=== PATIENT | female | born 1965 | race Caucasian/White ===

== ENCOUNTER 2020-03-18 16:22 | Outpatient (CLI) | payer OTHER, SELFPAY ==
--- NOTE | ~2020-03-18 | MM_ITS ---
EXAMINATION: MM screening suzie BI w renny HISTORY: Screening mammogram TECHNIQUE: Craniocaudal and mediolateral oblique 3-D tomosynthesis images were obtained and synthetic 2-D images were generated. CAD analysis was submitted and interpreted. COMPARISON: 07/19/2016 bilateral digital screening mammogram BREAST PARENCHYMAL COMPOSITION: The breasts are almost entirely fatty. FINDINGS: There is no evidence of suspicious mass, calcification, or architectural distortion to sugg est malignancy in either breast. There has been no suspicious interval change. IMPRESSION: 1. No mammographic evidence of malignancy. 2. Recommend routine screening mammography in one year. BI-RADS Category 1: Negative Reviewed, dictated and finalized at location A.
== END 2020-03-18 16:23 | disposition home or self-care (01) ==
LOC: ANHIMG 16:29
PROVIDERS: PCP Nurse Practitioner Family; Visit Provider Nurse Practitioner Family
DX: Z12.31 Encounter for screening mammogram for malignant neoplasm of breast (principal)
CPT/HCPCS: 77063; 77067

== ENCOUNTER 2021-03-31 16:43 | Outpatient (CLI) | payer OTHER, SELFPAY ==
--- NOTE | ~2021-03-31 | MM_ITS ---
EXAMINATION: MM screening suzie BI w renny HISTORY: Screening mammogram TECHNIQUE: Craniocaudal and mediolateral oblique 3-D tomosynthesis images were obtained and synthetic 2-D images were generated. CAD analysis was submitted and interpreted. COMPARISON: 03/18/2020 bilateral digital screening mammogram 08/19/2016 complete left breast ultrasound 07/19/2016, 04/29/2015 bilateral digital screening mammogram BREAST PARENCHYMAL COMPOSITION: The breasts are almost entirely fatty. FINDINGS: There is no evidence of suspicious mass, calcification, or architectural distortion to sugg est malignancy in either breast. There has been no suspicious interval change. IMPRESSION: 1. No mammographic evidence of malignancy. 2. Recommend routine screening mammography in one year. BI-RADS Category 1: Negative Reviewed, dictated and finalized at location A.
== END 2021-03-31 16:44 | disposition home or self-care (01) ==
PROVIDERS: PCP Nurse Practitioner Family; Visit Provider Nurse Practitioner Family
DX: Z12.31 Encounter for screening mammogram for malignant neoplasm of breast (principal)
CPT/HCPCS: 77063; 77067

== ENCOUNTER 2021-04-15 19:51 | Emergency (ER) | payer OTHER, SELFPAY ==
[2021-04-15 20:03] VITALS: BP 128/79; PULSE 102; RESP 16; TEMP 37.3; O2SAT 98
--- NOTE | 2021-04-15 20:03 | ED.URI ---
HPI - URI/Sore Throat General Chief Complaint: Upper Respiratory Infection Stated Complaint: cough/headache Time Seen by Provider: 04/15/21 20:03 Source: patient and RN notes reviewed Mode of arrival: ambulatory Limitations: no limitations History of Present Illness HPI Narrative: 55-year-old female presents with concern for Covid exposure, 4-day history of sinus congestion, drainage, headache, body aches, cough. Reports she has been taking [id number] medication without relief. She denies fever. Reports loss of taste and smell. MD elicited complaint: cough Related Data Home Medications Medication Instructions Recorded Confirmed Flonase 04/15/21 Xyzal 04/15/21 cyanocobalamin (vitamin B-12) 04/15/21 duloxetine mg PO 04/15/21 ergocalciferol (vitamin D2) 04/15/21 solifenacin mg PO 04/15/21 telmisartan mg 04/15/21 Allergies Allergy/AdvReac Type Severity Reaction Status Date / Time cephalexin Allergy Unknown Verified 02/12/19 10:54 Cephalosporins Allergy Unknown Verified 02/12/19 10:54 codeine Allergy Unknown Verified 02/12/19 10:54 hydrocodone Allergy Unknown Verified 02/12/19 10:54 morphine Allergy Unknown Verified 02/12/19 10:54 Penicillins Allergy Unknown Verified 02/12/19 10:54 Sulfa (Sulfonamide Allergy Unknown Verified 02/12/19 10:54 Antibiotics) sulfamethoxazole Allergy Unknown Verified 02/12/19 10:54 Review of Systems Review of Systems: CONSTITUTIONAL: Denies malaise, chills, sweats, or fever. EYES: Denies visual changes, redness, or discharge. ENT: Reports rhinorrhea, congestion, ear pain, sore throat. CARDIOVASCULAR: Denies chest pain, palpitations, or edema. RESPIRATORY: Reports cough. Denies dyspnea. GASTROINTESTINAL: Denies abdominal pain, nausea, vomiting, diarrhea SKIN: Denies rash or itching. MUSCULOSKELETAL: Reports myalgia. NEUROLOGIC: Reports headache. All systems reviewed & are unremarkable except as noted in HPI and below PMFSH Family History Family History (Updated 09/27/17 @ 12:18 by DOCTOR UNKNOWN) Other Family history of coronary artery disease Social History Social History Smoking status: Never smoker Alcohol intake: never Comments At time of signature, agree with nursing past medical, surgical, social and family history. There is no relevant family history pertinent to the presenting complaint Exam Narrative: GENERAL: Well-appearing, well-nourished, and in no acute distress. HEAD: Normocephalic EYES: PERRLA, conjunctivae clear ENT: Nares clear, turbinates erythematous, clear discharge. Mucous membranes moist. TM pearly henderson with sharp light reflex bilaterally; no tragal tenderness. Oropharynx not erythematous without lesions. Tonsils not enlarged and without exudate, no drooling, no hoarseness, no trismus, uvula midline. NECK: Supple. No lymphadenopathy CHEST: Clear to auscultation, breath sounds equal. No wheezing, rhonchi, rales, or stridor. No respiratory distress, speaks in full sentences. HEART: Regular rate and rhythm. No murmur heard. SKIN: Warm, dry, no rash. NEURO: Alert and oriented x3. PSYCH: Normal mood and affect Course Course Emergency Course: Patient is aware of diagnosis, understands and agrees to treatment plan. Anticipatory guidance given. Patient agrees to follow-up as directed and is aware of reasons to seek care at the emergency department. Portions of this record may have been created with voice recognition software Vital Signs Vital signs: Reviewed. MDM - URI/Sore Throat MDM Narrative Medical decision making narrative: Differential diagnosis considered: Gabriel virus, strep pharyngitis, allergic rhinitis, upper respiratory tract infection, sinusitis, rhinosinusitis, nasopharyngitis. viral pharyngitis, otitis media, otitis externa, pneumonia, bronchitis, viral cough syndrome, viral syndrome, and influenza. Exam findings show no acute concerns or changes; patient is non-toxic appearing and is in no distress. Patient
== END 2021-04-15 20:30 | disposition home or self-care (01) ==
PROVIDERS: Emergency Provider Nurse Practitioner; PCP Nurse Practitioner Family
DX: U07.1 COVID-19 (principal); I10 Essential (primary) hypertension
CPT/HCPCS: 87426; 99213; C9803; G0463

== ENCOUNTER 2022-02-02 14:33 | Emergency (ER) | payer OTHER, SELFPAY ==
--- NOTE | ~2022-02-02 | CT_ITS ---
EXAMINATION: CT abdomen pelvis wo con DATE: 02/02/2022 15:25 INDICATION: Flank pain, back pain and increased urinary frequency TECHNIQUE: Computed tomography (CT) of the abdomen and pelvis was performed without intravenous contr ast. Automated exposure control and iterative reconstruction technique were employed. The dose-length product was 868.76 mGy-cm. COMPARISON: 06/08/2013 FINDINGS: Lung bases are clear. Heart size is normal. No pericardial or pleural effusion. 3.2 cm cyst in the le ft hepatic lobe. Additional 5 mm low-attenuation likely cyst at the junction of the left and right he patic lobes. Cholecystectomy clips the gallbladder fossa. Pancreas, spleen, bilateral adrenal glands and kidneys are normal. No urolithiasis. Small fat-containing umbilical and supraumbilical ventral he rnias. There are few sigmoid diverticula without adjacent inflammatory change to suggest diverticulit is. Small bowel is normal with no obstruction. The appendix is not visualized. No pericecal inflammat ory change to suggest acute appendicitis. Bladder is normal. The uterus is not identified and has lik cris been surgically resected. No free intraperitoneal gas or fluid. No pathologically enlarged abdomi nal or pelvic lymphadenopathy. Scattered mild degenerative skeletal changes. IMPRESSION: 1. No urolithiasis or acute intra-abdominal/pelvic process. 2. Small fat-containing umbilical and supraumbilical ventral hernias. Reviewed, dictated and finalized at location B.
[2022-02-02 14:35] VITALS: BP 140/80; PULSE 83; RESP 19; TEMP 36.6; O2SAT 96
[2022-02-02 15:05] LABS: Add Urine Microscopic? NO; Appearance Urine Clear (Clear); Bilirubin Urine Negative (Negative); Blood Urine Negative (Negative); Color Urine Yellow (Yellow); Glucose Urine UA Negative (Negative); Ketones Urine Trace mg/dL (Negative); Leukocyte Esterase Ur Negative LEU/UL (Negative); Nitrate Urine Negative (Negative); Protein Urine Negative (Negative); Specific Grav Ur >= 1.030 (1.001-1.035); Urobilinogen Urine 0.2 mg/dL (<2.0)
--- NOTE | 2022-02-02 15:06 | PC.NURSE ---
patient to ER per personal vehicle. pt states that she has been diagnosed with UTI and has been put on two rounds of ANTBX. culture was done and states that the bacteria is resistant to multiple antibiotics. She also has multiple allergies to medications. She was sent in by PCP for IV Antibiotics.
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
== END 2022-02-02 16:44 | disposition home or self-care (01) ==
PROVIDERS: Physician Assistant; Emergency Provider Emergency Medicine; PCP Nurse Practitioner Family
DX: N39.46 Mixed incontinence (principal)
CPT/HCPCS: 74176; 81003; 99284

== ENCOUNTER 2022-09-17 11:48 | Emergency (ER) | payer OTHER, SELFPAY ==
[2022-09-17 11:58] VITALS: BP 129/80; PULSE 84; RESP 16; TEMP 36.8; O2SAT 99
--- NOTE | 2022-09-17 12:32 | ED.URI ---
HPI - URI/Sore Throat General Chief Complaint: Upper Respiratory Infection Stated Complaint: Sore Throat Time Seen by Provider: 09/17/22 12:32 Source: patient Mode of arrival: ambulatory Limitations: no limitations History of Present Illness HPI Narrative: 56-year-old female presents with complaint of sore throat, sinus pressure, ear pressure for 2 days. Afebrile. Denies body aches, fatigue. No nausea vomiting diarrhea. No chest pain shortness of breath or cough. Recent strep exposure. All systems reviewed and negative except as noted above. Related Data Home Medications Medication Instructions Recorded Confirmed gabapentin 100 mg capsule 100 mg PO HS 02/02/22 09/17/22 hydroxychloroquine 200 mg tablet 200 mg PO BID 02/02/22 09/17/22 telmisartan 40 mg tablet 40 mg PO DAILY 02/02/22 09/17/22 Allergies Allergy/AdvReac Type Severity Reaction Status Date / Time cephalexin Allergy Unknown Unknown Verified 09/17/22 12:05 Cephalosporins Allergy Unknown Unknown Verified 09/17/22 12:05 codeine Allergy Unknown Unknown Verified 09/17/22 12:05 hydrocodone Allergy Unknown Unknown Verified 09/17/22 12:05 morphine Allergy Unknown Unknown Verified 09/17/22 12:05 Penicillins Allergy Unknown Unknown Verified 09/17/22 12:05 Sulfa (Sulfonamide Allergy Unknown Hives Verified 09/17/22 12:05 Antibiotics) sulfamethoxazole Allergy Unknown Unknown Verified 09/17/22 12:05 tramadol Allergy Agitated Verified 09/17/22 12:05 Review of Systems Review of Systems: CONSTITUTIONAL: Denies fever, chills, or sweats. EYES: Denies visual changes, redness, or discharge. ENT: Denies rhinorrhea . Reports sinus congestion, sore throat, ear pressure CARDIOVASCULAR: Denies chest pain, palpitations, or edema. RESPIRATORY: Denies cough or dyspnea. GASTROINTESTINAL: Denies abdominal pain, nausea, vomiting, or diarrhea. GENITOURINARY: Denies dysuria or hematuria. SKIN: Denies rash or itching. MUSCULOSKELETAL: Denies back pain, joint pain, or myalgia. NEUROLOGIC: Denies headache, numbness, or weakness. PSYCHIATRIC: Denies anxiety or depression. All other systems reviewed are negative, except as documented in HPI. [facility] Surgical History Surgical History H/O exploratory laparotomy Family History Family History Other Family history of coronary artery disease Social History Social History (System 03/10/22 @ 12:02 by Jacki Flynn) Smoking status: Never smoker Alcohol intake: never Comments At time of signature, agree with nursing past medical, surgical, social and family history. There is no relevant family history pertinent to the presenting complaint. Exam Narrative: GENERAL: This is a well-nourished, well-developed patient, in no apparent distress. HEAD: normocephalic, atraumatic. EYES: PERRL. Sclera clear/white. Vision is grossly intact. EARS: External ears normal, auditory canals clear and without drainage, TMs normal without perforation. Hearing grossly intact. NOSE: External nose normal with mild erythema bilateral nares, mild congestion. THROAT: Mucous membranes moist, posterior pharynx clear. NECK: Neck supple, non-tender without lymphadenopathy, masses or thyromegaly. CARDIOVASCULAR: Regular rate and rhythm without murmurs, gallops, or rubs. RESPIRATORY: Clear to auscultation. Breath sounds equal bilaterally. No wheezes, rales, or rhonchi. SKIN: warm, Dry, intact with no suspicious lesions or rash, good texture and turgor. NEURO: awake, alert, and oriented to person, place and time. There were no obvious focal neurologic abnormalities. EXTREMITIES: No joint tenderness, effusion, or edema noted. Course Course Level of Care: Express Care Visit Vital Signs Vital signs: Vital Signs Temperature 36.8 C 09/17/22 11:58 Pulse Rate 84 09/17/22 11:58 Respiratory Rate 16 09/17/22 11:58 Blood Pressure 129/80
== END 2022-09-17 12:48 | disposition home or self-care (01) ==
PROVIDERS: Emergency Provider Nurse Practitioner Family; PCP Nurse Practitioner Family
DX: J01.90 Acute sinusitis, unspecified (principal); J02.9 Acute pharyngitis, unspecified; Z20.822 Contact with and (suspected) exposure to COVID-19
CPT/HCPCS: 87081; 87426; 87880; 99213; C9803; G0463

== ENCOUNTER 2024-02-17 12:44 | Outpatient (CLI) | payer OTHER, SELFPAY ==
--- NOTE | ~2024-02-17 | MM_ITS ---
EXAMINATION: MM screening suzie BI w renny HISTORY: Screening TECHNIQUE: Craniocaudal and mediolateral oblique 3-D tomosynthesis images were obtained and synthetic 2-D images were generated. CAD analysis was submitted and interpreted. COMPARISON: Comparison to multiple prior studies sequentially, with oldest reviewed study dated 04/29. BREAST PARENCHYMAL COMPOSITION: Not dense: There are scattered areas of fibroglandular density. FINDINGS: There is no evidence of suspicious mass, calcification, or architectural distortion to sugg est malignancy in either breast. There has been no suspicious interval change. IMPRESSION: 1. No mammographic evidence of malignancy. 2. Recommend routine screening mammography in one year. BI-RADS Category 1: Negative Reviewed, dictated and finalized at location B.
--- NOTE | ~2024-02-17 | DEXA_ITS ---
Bone Density Report Name: RICHARD BENITEZ Age: 58 Sex: Female Ethnicity: White Date of : 1965 Indication: postmenopausal; screening for osteoporosis; height loss; history of glucocorticoids; hysterectomy; Referring Provider: YOANESTEE Study: Bone densitometry was performed. Exam Date: February 17, 2024 Accession number: [id number] Bone Density: Region BMD T-score Z-score Classification AP Spine(L1-L4) 0.949 -0.9 0.5 Normal Femoral Neck (Left) 0.772 -0.7 0.6 Normal Total Hip (Left) 1.069 1.0 2.0 Normal Femoral Neck (Right) 0.728 -1.1 0.2 Osteopenia Total Hip (Right) 1.003 0.5 1.5 Normal Total Hip Mean 1.036 0.8 1.8 Normal World Health Organization criteria for BMD impression classify patients as: Normal (T-score at or above -1.0), Osteopenia (T-score between -1.0 and -2.5), or Osteoporosis (T-score at or below -2.5). 10-year Fracture Risk(1): Major Osteoporotic Fracture 11% Hip Fracture 0.8% Reported Risk Factors: [place] (), Neck BMD=0.728, BMI=33.9, glucocorticoids (1) FRAX(R) Version 3.08. Fracture probability calculated for an untreated patient. Fracture probability may be lower if the patient has received treatment. Clinical Information Provided by Patient: Has taken Glucocorticoids Has used the following medications: Vitamin D, Calcium Has the following medical conditions: Hysterectomy Patient maximum height was 67.0 Menopause Age: 33 No regular weight bearing exercise Drinks caffeinated beverages Onset of menses at age 10 Number of children 1 Impression: The patient has low bone mass, based on the Right Femoral Neck T-score. The patient has an estimated ten-year risk of hip fracture of 0.8% and an estimated ten-year risk of major fracture of 11%, based on the WHO FRAX algorithm. The patient has risk factors, including: history of glucocorticoid therapy. Discussion: BONE DENSITY IS LOW AT ONE OR MORE SKELETAL SITES. This patient's lowest T-score is low at one or more skeletal sites. It meets the World Health Organization's (WHO) criteria for ?low bone mass? (T-score between -1.0 and -2.5). The patient's 10-year risk of fracture as calculated by FRAX is less than the threshold where pharmacological therapy is recommended by the National Osteoporosis Foundation (NOF). However, all treatment decisions require clinical judgment and consideration of individual patient factors, including patient preferences, comorbidities, previous drug use, risk factors not captured in the FRAX model (e.g., frailty, falls, vitamin D deficiency, increased bone turnover, interval significant decline in bone density) and possible under or overestimation of fracture risk by FRAX. The patient should follow a healthful lifestyle (good nutrition with adequate calcium and vitamin D,
== END 2024-02-17 12:45 | disposition home or self-care (01) ==
LOC: ANHIMG 12:52
PROVIDERS: PCP Nurse Practitioner Family; Visit Provider Nurse Practitioner Family
DX: Z12.31 Encounter for screening mammogram for malignant neoplasm of breast (principal); E89.40 Asymptomatic postprocedural ovarian failure; Z90.710 Acquired absence of both cervix and uterus; M85.851 Other specified disorders of bone density and structure, right thigh
CPT/HCPCS: 77063; 77067; 77080

== ENCOUNTER 2024-04-30 19:38 | Emergency (ER) | payer OTHER, SELFPAY ==
--- NOTE | ~2024-04-30 | XR_ITS ---
EXAMINATION: XR wrist LT min 3V DATE: 04/30/2024 20:03 INDICATION: Left wrist pain. TECHNIQUE: 3 views of left wrist were obtained. COMPARISON: None. FINDINGS: Alignment is normal. No fracture. There is severe osteoarthritis of first carpometacarpal j oint with a loose body. IMPRESSION: 1. Severe osteoarthritis of first carpometacarpal joint with a loose body. Reviewed, dictated and finalized at location A.
[2024-04-30 19:50] VITALS: BP 149/86; PULSE 85; RESP 20; TEMP 37.4; O2SAT 97
--- NOTE | 2024-04-30 20:30 | ED.UPPEXIN ---
HPI - Extremity Injury (Upper) General Chief Complaint: Extremity Injury, Upper Stated Complaint: Left Wrist Pain Time Seen by Provider: 04/30/24 20:30 Source: patient, RN notes reviewed and old records reviewed Mode of arrival: ambulatory Limitations: no limitations History of Present Illness HPI narrative: 58-year-old female presents to the [facility] with complaints of left wrist pain after lifting an object yesterday. States that she took some ibuprofen 600 mg in been icing and elevating it. has a splint that she has been wearing. Decreased range of motion. Positive radial pulse. Capillary refill under 2 seconds. Sensation intact. Mild inflammation noted Related Data Home Medications Medication Instructions Recorded Confirmed gabapentin 100 mg capsule 100 mg PO HS 02/02/22 09/17/22 hydroxychloroquine 200 mg tablet 200 mg PO BID 02/02/22 09/17/22 telmisartan 40 mg tablet 40 mg PO DAILY 02/02/22 09/17/22 cyanocobalamin (vitamin B-12) mcg 04/30/24 1,000 mcg/mL injection solution ergocalciferol (vitamin D2) 1,250 04/30/24 mcg (50,000 unit) capsule fenofibrate nanocrystallized 145 mg PO 04/30/24 mg tablet imiquimod 5 % topical cream packet topical 04/30/24 syringe with needle 3 mL 25 gauge 04/30/24 04/30/24 x 1 (BD Luer-Rad Syringe) Allergies Allergy/AdvReac Type Severity Reaction Status Date / Time cephalexin Allergy Unknown Unknown Verified 04/30/24 19:51 Cephalosporins Allergy Unknown Unknown Verified 04/30/24 19:51 codeine Allergy Unknown Unknown Verified 04/30/24 19:51 hydrocodone Allergy Unknown Unknown Verified 04/30/24 19:51 morphine Allergy Unknown Unknown Verified 04/30/24 19:51 Penicillins Allergy Unknown Unknown Verified 04/30/24 19:51 Sulfa (Sulfonamide Allergy Unknown Hives Verified 04/30/24 19:51 Antibiotics) sulfamethoxazole Allergy Unknown Unknown Verified 04/30/24 19:51 tramadol Allergy Agitated Verified 04/30/24 19:51 Review of Systems Review of Systems: All systems reviewed & are unremarkable except as noted in HPI and below Constitutional: Constitutional: Reports no additional constitutional complaints Eyes: Eyes: Reports no additional eye complaints ENT: Reports system reviewed and no additional complaints, except as documented Cardiovascular: Cardiovascular: Reports no additional cardiovascular complaints, Denies chest pain and Denies dyspnea Respiratory: Respiratory: Reports no additional respiratory complaints, Denies chest congestion, Denies cough and Denies dyspnea Gastrointestinal: Gastrointestinal: Reports no additional gastrointestinal complaints, Denies abdominal pain, Denies nausea and Denies vomiting Musculoskeletal: Musculoskeletal: Reports as per HPI and Reports arthralgias Integumentary/Breasts: Skin/Breast: Reports system reviewed and no additional complaints, except as docu Neurologic: Reports system reviewed and no additional complaints, except as documented Psychiatric: Psychiatric: Reports no additional psychiatric complaints Allergic/Immunologic: Allergic/Immunologic: Reports no additional allergic/immunologic complaints PMFSH Past Medical History Medical History Fibromyalgia Hypertriglyceridemia Vitamin D deficiency Surgical History Surgical History H/O exploratory laparotomy Family History Family History Other Family history of coronary artery disease Social History Social History Smoking status: Never smoker Alcohol intake: never Comments At the time of my signature, I reviewed and agree with the nursing past medical, surgical, social, and family history. There is no relevant family history pertinent to the patient complaint. Exam Const: General: cooperative, healthy appearing, comfortable, no acut
== END 2024-04-30 20:40 | disposition home or self-care (01) ==
PROVIDERS: Emergency Provider Nurse Practitioner; PCP Nurse Practitioner Family
DX: S66.912A Strain of unspecified muscle, fascia and tendon at wrist and hand level, left hand, initial encounter (principal); X50.0XXA Overexertion from strenuous movement or load, initial encounter; M19.032 Primary osteoarthritis, left wrist; M79.7 Fibromyalgia; E78.1 Pure hyperglyceridemia
CPT/HCPCS: 73110; 99213; G0463

== ENCOUNTER 2024-10-25 10:53 | Inpatient (IN) | payer OTHER, SELFPAY ==
[2024-10-25] VITALS (20 sets, daily range): BP systolic 103–118; BP diastolic 60–70; PULSE 62–99; RESP 15–28; TEMP 36.7–37.6; O2SAT 88–97; BMI 32.8
--- NOTE | ~2024-10-25 | XR_ITS ---
XR chest 2V 10/25/2024 11:24 Indication: Shortness of breath Procedure: 2 view chest Comparison: 02/12/2019 Findings: Heart size normal. No focal air space disease, pulmonary edema, pleural effusion or suspect ed pneumothorax. No acute osseous abnormality. There are cholecystectomy clips. Mild thoracic spondyl osis. There is osteoarthritis of the shoulders. Impression: 1: No acute cardiopulmonary disease. Reviewed, dictated and finalized at location B. CASE MANAGER Impression: 1: No acute cardiopulmonary disease.
--- NOTE | 2024-10-25 11:00 | ECG_ITS ---
Test Date: 2024-10-25 11:36:11 Measurements Intervals [place] Rate: 96 P: 43 CT: 156 QRS: 91 QRSD: 100 T: 40 QT: 349 QTc: 442 Interpretive Statements SINUS RHYTHM RIGHT AXIS DEVIATION BORDERLINE R WAVE PROGRESSION, ANTERIOR LEADS MINIMAL Q WAVES- INFERIOR LEADS BORDERLINE T WAVE ABNORMALITY- ANTERIOR LEADS BORDERLINE ECG No previous ECG available for comparison Electronically Signed On 10-25-2024 11:47:18 COMPONENTS ENGINEER by Derek Brown D.O.
--- NOTE | 2024-10-25 11:12 | ED_ITS ---
HPI - SOB/Dyspnea General Chief Complaint: Shortness of Breath/Dyspnea <Pavithra Quesada PA-C - Last Filed: 10/25/24 12:42> Stated Complaint: low oxygen, flu a <Pavithra Quesada PA-C - Last Filed: 10/25/24 12:42> Time Seen by Provider: 10/25/24 11:02 <Pavithra Quesaad PA-C - Last Filed: 10/25/24 12:42> Source: patient <Pavithra Quesada PA-C - Last Filed: 10/25/24 12:42> Mode of arrival: wheelchair <DIANE Renee Last Filed: 10/25/24 12:42> Limitations: no limitations <Pavithra Quesada PA-C - Last Filed: 10/25/24 12:42> History of Present Illness HPI Narrative: This is a 59-year-old female that presents to the emergency department for cold symptoms. Present over the last 6 days. Reports fever, cough, congestion, shortness of breath. Reports she currently has influenza. Seen at her primary office and was hypoxic. Refused ambulance transport. <Pavithra Quesada PA-C - Last Filed: 10/25/24 12:42> Related Data Home Medications: Home Medications ?Medication ?Instructions ?Recorded ?Confirmed ?Last Taken ?Type gabapentin 100 mg capsule 100 mg PO HS 02/02/22 10/25/24 10/24/24 History hydroxychloroquine 200 mg tablet 200 mg PO BID 02/02/22 10/25/24 10/24/24 History telmisartan 40 mg tablet 40 mg PO DAILY 02/02/22 10/25/24 10/24/24 History cyanocobalamin (vitamin B-12) mcg 04/30/24 09/24/24 History 1,000 mcg/mL injection solution ergocalciferol (vitamin D2) 1,250 04/30/24 Unknown History mcg (50,000 unit) capsule fenofibrate nanocrystallized 145 mg PO 04/30/24 Unknown History mg tablet syringe with needle 3 mL 25 gauge 04/30/24 10/25/24 Unknown History x 1 (BD Luer-Rad Syringe) duloxetine 30 mg capsule,delayed 30 mg PO DAILY 10/25/24 10/25/24 10/24/24 History release <Pavithra Quesada PA-C - Last Filed: 10/25/24 12:42> Allergies/Adverse Reactions: Allergies Allergy/AdvReac Type Severity Reaction Status Date / Time cephalexin Allergy Unknown Unknown Verified 10/25/24 13:06 Cephalosporins Allergy Unknown Unknown Verified 10/25/24 13:06 codeine Allergy Unknown Unknown Verified 10/25/24 13:06 hydrocodone Allergy Unknown Unknown Verified 10/25/24 13:06 morphine Allergy Unknown Unknown Verified 10/25/24 13:06 Penicillins Allergy Unknown Unknown Verified 10/25/24 13:06 Sulfa (Sulfonamide Allergy Unknown Hives Verified 10/25/24 13:06 Antibiotics) sulfamethoxazole Allergy Unknown Unknown Verified 10/25/24 13:06 ketorolac (From Toradol) Allergy Vomiting Verified 10/25/24 13:06 tramadol Allergy Agitated Verified 10/25/24 13:06 <Pavithra Quesada PA-C - Last Filed: 10/25/24 12:42> Review of Systems 2 Review of Systems: CONSTITUTIONAL: Denies fever ENT: Reports rhinorrhea, congestion CARDIOVASCULAR: Denies chest pain, or edema. RESPIRATORY: Reports cough and dyspnea. <Pavithra Quesada PA-C - Last Filed: 10/25/24 12:42> All systems reviewed & are unremarkable except as noted in HPI and below < Pavithra Quesada PA-C - Last Filed: 10/25/24 12:42> [facility] Past Medical History Medical History: Medical History (Updated 10/25/24 @ 13:29 by Rhoda Chapa APRN) Hypertension Vitamin D deficiency Hypertriglyceridemia Fibromyalgia <Pavithra Quesada PA-C - Last Filed: 10/25/24 12:42> Surgical History Surgical History: Surgical History H/O exploratory laparotomy <Pavithra Quesada PA-C - Last Filed: 10/25/24 12:42> Family History Family History: Family History Other Family history of coronary artery disease <Pavithra Quesada PA-C - Last Filed: 10/25/24 12:42> Social History Social History: Social History Smoking status: Never smoker Alcohol intake: never Substance use: never Substance use type: does not use Do You Feel Safe in your Home?: Yes Lack of Transportation: No Lack of Food: Never True Current Housing: I Have Housing Concerned About Future Housing: No Difficulty Paying Gas/Electric Bills: No Difficulty Paying for Meds: No Currently Unemployed: No Education: Don't Know Difficulty w/ Childcare or Family Care: No Spiritual care concerns: No <Pavithra Quesada PA-C - Last Filed: 10/25/24 12:42> Exam 2 Narrative: GENERAL: Well-appearing, well-nourished, and in no acute distress. HEAD: Normocephalic, atraumatic. EYES: EOMI. ENT: Nares clear, no rhinorrhea or epistaxis. Mucous membranes moist. Oropharynx without tonsillar hypertrophy exudate or other lesions. Bilateral TMs pearly henderson non-bulging NECK: Supple. No adenopathy or masses. CHEST: No respiratory distress. Lung sounds diminished with diffuse wheezing. No rales or rhonchi HEART: Regular rate and rhythm. No murmur heard. Normal peripheral pulses. EXTREMITIES: Normal range of motion. No edema. SKIN: Warm, dry, no rash. NEURO: No focal deficits. Alert and oriented x3. PSYCH: Normal mood and affect <Pavithra Quesada PA-C - Last Filed: 10/25/24 12:42> Course Course Emergency Course: patient updated on her workup and recommendation for admission. She did have improvement after nebulizer treatment <Pavithra Quesada PA-C - Last Filed: 10/25/24 12:42> JOB CHECKER/PA Physician Supervision This visit was performed by both a physician and an APC. I performed all aspects of the MDM as documented. <Moo Garcia MD - Last Filed: 10/25/24 18:05> Consultations Consultation #1: Spoke with hospitalist about patient and workup who accepts admission < Pavithra Quesada PA-C - Last Filed: 10/25/24 12:42> Date: 10/25/24 <Pavithra Quesada PA-C - Last Filed: 10/25/24 12:42> Vital Signs Vital signs: Vital Signs Temperature 99.7 F H 10/25/24 10:54 Pulse Rate 99 10/25/24 10:54 Respiratory Rate 20 10/25/24 10:54 Blood Pressure 110/60 10/25/24 10:54 Pulse Oximetry 94 10/25/24 10:54 Oxygen Delivery Room Air 10/25/24 10:54 Temperature 98.2 F 10/25/24 15:00 Pulse Rate 82 10/25/24 15:00 Respiratory Rate 20 10/25/24 15:00 Blood Pressure 113/61 10/25/24 15:00 Pulse Oximetry 93 10/25/24 15:00 Oxygen Delivery Nasal Cannula 10/25/24 14:07 Oxygen Flow Rate 3 10/25/24 14:07 <Pavithra Quesada PA-C - Last Filed: 10/25/24 12:42> Vital Signs Temperature 99.7 F H 10/25/24 10:54 Pulse Rate 99 10/25/24 10:54 Respiratory Rate 20 10/25/24 10:54 Blood Pressure 110/60 10/25/24 10:54 Pulse Oximetry 94 10/25/24 10:54 Oxygen Delivery Room Air 10/25/24 10:54 Temperature 98.2 F 10/25/24 15:00 Pulse Rate 82 10/25/24 15:00 Respiratory Rate 20 10/25/24 15:00 Blood Pressure 113/61 10/25/24 15:00 Pulse Oximetry 93 10/25/24 15:00 Oxygen Delivery Nasal Cannula 10/25/24 14:07 Oxygen Flow Rate 3 10/25/24 14:07 <Moo Garcia MD - Last Filed: 10/25/24 18:05> MDM - SOB/Dyspnea MDM Narrative Medical decision making narrative: Patient presents to the emergency department with shortness of breath and wheezing. Patient currently with influenza a. She is afebrile and nontoxic appearing. Diffuse wheezing noted upon arrival. Given nebulizer treatment and steroid with improvement. She did have oxygen desaturation in the upper 80s. Is currently on 3 L nasal cannula. She does not usually wear oxygen. Chest x- ray without acute cardiopulmonary abnormality. patient updated on her workup and recommendation for admission. Spoke with hospitalist about patient and workup who accepts admission <Pavithra Quesada PA-C - Last Filed: 10/25/24 12:42> Differential Diagnosis Differential diagnosis: Likely community acquired pneumonia and other (influenza, bronchitis) < Pavithra Quesada PA-C - Last Filed: 10/25/24 12:42> Lab Data Attestation: I reviewed the patient's lab results. <Pavithra Quesada PA-C - Last Filed: 10/25/24 12:42> Result diagrams: 10/25/24 11:41 10/25/24 11:41 <Pavithra Quesada PA-C - Last Filed: 10/25/24 12:42> Labs: Lab Results 10/25/24 10/25/24 Range/Units 11:41 14:12 WBC 5.1 (4.5-10.0) K/mm3 RBC 3.77 L (4.2-5.4) M/mm3 Hgb 13.2 (12.0-15.0) g/dL Hct 37.7 (37.0-47.0) % MCV 100.0 (80-100) fl MCH 35.0 H (26-34) pg MCHC 35.0 (32-36) g/dl RDW 12.0 (11.5-14.5) % Plt Count 167 (150-375) k/mm3 MPV 9.6 (7.4-10.4) fl Immature Gran % (Auto) 0.4 (0-0.5) % Neut % (Auto) 64.3 (45.5-73.1) % Lymph % (Auto) 26.0 (18.3-44.2) % Hamlin % (Auto) 9.1 H (2.6-8.5) % Eos % (Auto) 0.0 (0-4.4) % Baso % (Auto) 0.2 (0.2-1.2) % Lymph # (Auto) 1.32 (0.9-3.2) K/mm3 Hamlin # (Auto) 0.5 (0.1-0.6) K/mm3 Eos # (Auto) 0.0 (0-0.3) K/mm3 Baso # (Auto) 0.0 (0.0-0.1) K/mm3 Abs Immat Gran (auto) 0.02 (0.00-0.031) K/mm3 Absolute Neuts (auto) 3.3 (1.3-6.7) K/mm3 Absolute Nucleated RBC 0.000 (0.0-0.012) K/mm3 Band Neutrophils % Not Reportable Nucleated RBC % 0.0 (0.0-0.2) % Atypical Lymphocytes Present Platelet Estimate Adequate (Adequate) Schistocytes None seen Sodium 134 L (137-145) mmol/L Potassium 3.6 (3.4-5.0) mmol/L Chloride 95 L (98-107) mmol/L Carbon Dioxide 28 (22-30) mmol/L Anion Gap 11 (4-12) mmol/L BUN 24 H (7-17) mg/dL Creatinine 0.82 (0.7-1.0) mg/dL Estim Creat Clear Calc 74 ml/min Estimated GFR > 60 (59 - ) Glucose 112 H (65-110) mg/dL Lactic Acid 0.7 (0.7-2.0) mmol/L Calcium 8.1 L (8.4-10.2) mg/dL Total Bilirubin 0.7 (0.2-1.3) mg/dL AST 47 H (14-36) U/L ALT 38 H (6-35) U/L Alkaline Phosphatase 49 (38-126) U/L Total Protein 7.0 (6.3-8.2) g/dL Albumin 4.0 (3.5-5.1) g/dL Influenza A (RT-PCR) Positive A (Negative) Influenza B (RT-PCR) Negative (Negative) RSV (RT-PCR) Negative (Negative) SARS-CoV-2 RNA (RT-PCR) Negative (Negative) <Pavithra Quesada PA-C - Last Filed: 10/25/24 12:42> Lab Results 10/25/24 10/25/24 Range/Units 11:41 14:12 WBC 5.1 (4.5-10.0) K/mm3 RBC 3.77 L (4.2-5.4) M/mm3 Hgb 13.2 (12.0-15.0) g/dL Hct 37.7 (37.0-47.0) % MCV 100.0 (80-100) fl MCH 35.0 H (26-34) pg MCHC 35.0 (32-36) g/dl RDW 12.0 (11.5-14.5) % Plt Count 167 (150-375) k/mm3 MPV 9.6 (7.4-10.4) fl Immature Gran % (Auto) 0.4 (0-0.5) % Neut % (Auto) 64.3 (45.5-73.1) % Lymph % (Auto) 26.0 (18.3-44.2) % Hamlin % (Auto) 9.1 H (2.6-8.5) % Eos % (Auto) 0.0 (0-4.4) % Baso % (Auto) 0.2 (0.2-1.2) % Lymph # (Auto) 1.32 (0.9-3.2) K/mm3 Hamlin # (Auto) 0.5 (0.1-0.6) K/mm3 Eos # (Auto) 0.0 (0-0.3) K/mm3 Baso # (Auto) 0.0 (0.0-0.1) K/mm3 Abs Immat Gran (auto) 0.02 (0.00-0.031) K/mm3 Absolute Neuts (auto) 3.3 (1.3-6.7) K/mm3 Absolute Nucleated RBC 0.000 (0.0-0.012) K/mm3 Band Neutrophils % Not Reportable Nucleated RBC % 0.0 (0.0-0.2) % Atypical Lymphocytes Present Platelet Estimate Adequate (Adequate) Schistocytes None seen Sodium 134 L (137-145) mmol/L Potassium 3.6 (3.4-5.0) mmol/L Chloride 95 L (98-107) mmol/L Carbon Dioxide 28 (22-30) mmol/L Anion Gap 11 (4-12) mmol/L BUN 24 H (7-17) mg/dL Creatinine 0.82 (0.7-1.0) mg/dL Estim Creat Clear Calc 74 ml/min Estimated GFR > 60 (59 - ) Glucose 112 H (65-110) mg/dL Lactic Acid 0.7 (0.7-2.0) mmol/L Calcium 8.1 L (8.4-10.2) mg/dL Total Bilirubin 0.7 (0.2-1.3) mg/dL AST 47 H (14-36) U/L ALT 38 H (6-35) U/L Alkaline Phosphatase 49 (38-126) U/L Total Protein 7.0 (6.3-8.2) g/dL Albumin 4.0 (3.5-5.1) g/dL Influenza A (RT-PCR) Positive A (Negative) Influenza B (RT-PCR) Negative (Negative) RSV (RT-PCR) Negative (Negative) SARS-CoV-2 RNA (RT-PCR) Negative (Negative) <Moo Garcia MD - Last Filed: 10/25/24 18:05> Imaging Data Radiologist's impression: ITS Impressions Chest X-Ray 10/25/24 11:24 Impression: 1: No acute cardiopulmonary disease. <Pavithra Quesada PA-C - Last Filed: 10/25/24 12:42> ECG Data EKG #1: ECG completion date: 10/25/24 <Pavithra Quesada PA-C - Last Filed: 10/25/24 12:42> EKG Interpretation: normal rate, sinus rhythm, no ST changes and normal QT <Pavithra Quesada PA-C - Last Filed: 10/25/24 12:42> Critical Care Time Critical Care Time Critical Care Time: Yes <Pavithra Quesada PA-C - Last Filed: 10/25/24 12:42> Total Critical Care Time: 35 <Pavithra Quesada PA-C - Last Filed: 10/25/24 12:42> Discharge Plan Discharge Clinical Impression: Influenza A, Acute hypoxic respiratory failure <Pavithra Quesada PA-C - Last Filed: 10/25/24 12:42> Patient Disposition: Still a Patient <DIANE Renee Last Filed: 10/25/24 12:42> Condition: Improved <Pavithra Quesada PA-C - Last Filed: 10/25/24 12:42>
--- OUTSIDE RECORDS SUMMARY | 2024-10-25 11:20 | XMS_ITS | Encounter Summary ---
Author Organization [facility] Address [address] [place] [address] Care Team Providers Care Home Appliance Washing Machine Mechanic Name Role Phone Leana Lopez Primary Care Provider [phone] Encounter Details Date Type Department Care Team (Latest Contact Info) Description 07/11/2018 Abstract [facility] Syed Knight MD Social History Tobacco Use Types Packs/Day Years Used Date Smoking Tobacco: Never Assessed Comments Unknown Sex and Gender Information Value Date Recorded Sex Assigned at Female 10/25/2024 9:32 AM WELDING SPECIALIST Legal Sex Female 9:40 PM CDT Gender Identity Not on file Sexual Orientation Not on file documented as of this encounter Plan of Treatment Not on file documented as of this encounter Visit Diagnoses Not on filedocumented in this encounter Additional Health Concerns Infection Onset Date Last Indicated Resolved Time COVID-19 Rule Out 10/25/2024 10/25/2024 10/25/2024 10:06 AM WELDING SPECIALIST Influenza - Seasonal 10/25/2024 10/25/2024 documented as of this encounter Care Teams Home Appliance Washing Machine Mechanic Relationship Specialty Start Date End Date Leana Lopez FNP [address] [place] [id number] PCP - General FAMILY PRACTICE 07/28/18 documented as of this encounter
--- OUTSIDE RECORDS SUMMARY | 2024-10-25 11:20 | XMS_ITS ---
Author Organization [facility] Address [address] [facility] [address] [place] [address] Care Team Providers Care Washer Off Name Role Phone Leana Pearson Primary Care Provider Mariposa MccoyMargie Roni [phone] REASON FOR VISIT medication Medications Medication SIG (Take, Route, Frequency, Duration) Notes Start Date End Date Status Vitamin D (Ergocalciferol) 1.25 MG (40916 UT) 1 Oral weekly for 30 days Active Encounters Encounter Location Date Provider Diagnosis [facility] [address] [facility] [address] [place] [address] 07/17/2024 Margie Mccoy Plan Of Treatment Medication Medication Name Sig Start Date Stop Date Notes Vitamin D (Ergocalciferol) 1 .25 MG (91919 UT) 1 Oral weekly for 30 days Next Appt Details Provider Name:Margie Mccoy, 01/23 01:45:00 PM, [address] [facility] [address], [place], [address], Progress Notes * Julia DESOUZA ADOB:1965 (58 yo F)Acc No.[id number]:07/17/2024 Patient: Julia TAM :1965 A ge:58 Y S ex:Female [address] [place], [address] * Refills Refill Vitamin D (Ergocalciferol) Capsule, 1.25 MG (38409 UT), Oral, 4, 1, weekly, 30 days, Refills=0 * true * Date: Generated for Jada loera/Og/Millieitting on: 0 10/25/2024 11:20 AM CARD DOFFER
--- OUTSIDE RECORDS SUMMARY | 2024-10-25 11:20 | XMS_ITS | Clinical Summary ---
Author Organization [facility] Care Team Providers Care Outsole Rounder Name Role Phone Unavailable Primary Care Provider Unavailabl e Social History Tobacco Use Types Packs/Day Years Used Date Smoking Tobacco: Never Assessed Comments Unknown Sex and Gender Information Value Date Recorded Sex Assigned at Not on file Legal Sex Female 9:36 AM CDT Gender Identity Not on file Sexual Orientation Not on file Plan of Treatment Health Maintenance Due Date Last Done Comments Hepatitis C Virus (HCV) Screening 1965 TdaP Immunization 1965 Pap Smear 1984 Cervical Cancer Screening (CCS) 1993 HPV/Cotest 1993 Colonoscopy 2008 Colorectal Cancer Screening 2008 Cologuard 2013 Immunochemical Fecal Occult Blood 2013 Mammogram 2013 Pneumococcal Immunization (5 0+ years) (1 of 1 - PCV) 2013 Zoster Immunization (1 of 2) 2013 Influenza Immunization (#1) 2024 09/11/2019 SARS-COV-2 Immunization ( - 2023-25 season) 2024 Respiratory Syncytial Virus (RSV) Immunization (Adult) (1 - 1-dose 75+ series) 2038 Hepatitis B Immunization Aged Out No longer eligible based on patient's age to complete this topic Meningococcal Immunization (ACWY) Aged Out No longer eligible based on patient's age to complete this topic Pneumococcal Immunization Combined Aged Out No longer eligible based on patient's age to complete this topic Rotavirus Immunization Aged Out No lo nger eligible based on patient's age to complete this topic
--- OUTSIDE RECORDS SUMMARY | 2024-10-25 11:20 | XMS_ITS | Encounter Summary ---
Author Organization [facility] Address [address] [place] [address] Care Team Providers Care Narcotics And Vice Detective Name Role Phone Leana Lopez Primary Care Provider [phone] Encounter Details Date Type Department Care Team (Late st Contact Info) Description 10/29/2023 [place] [employer] Message Enc [facility] Medical [facility] Family & Internal Medicine [facility] [address] [place] [address] Leana Lopez FNP [address] [place], [place] [id number] Test Results Social History Tobacco Use Types Packs/Day Years Used Date Smoking Tobacco: Never Passive Smoke Exposure: Never Smokeless Tobacco: Never Alcohol Use Standard Drinks/Week Comments No 0 (1 standard drink = 0.6 oz pur e alcohol) AUDIT-C Answer Date Recorded Frequency of Alcohol Consumption Never 08/09/2018 Average Number of Drinks Not on file 018 Frequency of Binge Drinking Not on file 01/2018 PHQ-2 Answer Date Recorded Patient Health Questionnaire-2 Score 0 10/13/2023 Comments No Sex and Gender Information Value Date Recorded Sex Assigned at Female 10/25/2024 9:32 AM CAN CUTTER Legal Sex Female 9:40 PM CDT Gender Identity Not on file Sexual Orientation Not on file documented as of this encounter Plan of Treatment Not on file documented as of this encounter Visit Diagnoses Not on filedocumented in this encounter Additional Health Concerns Infection Onset Date Last Indicated Resolved Time COVID-19 Rule Out 10/25/2024 10/25/2024 10/25/2024 10:06 AM CAN CUTTER Influenza - Seasonal 10/25/2024 10/25/2024 Assessment Noted Time PHQ-9 Depression Total Score: 6 10/13/19 24 11:22 AM CAN CUTTER documented as of this encounter Care Teams Narcotics And Vice Detective Relationship Specialty Start Date End Date Leana Lopez FNP [address] [place] [id number] PCP - General FAMILY PRACTICE 07/28/18 documented as of this encounter
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
--- OUTSIDE RECORDS SUMMARY | 2024-10-25 11:20 | XMS_ITS | Encounter Summary ---
Author Organization [facility] Address [address] [place] [address] Care Team Providers Care Precipitate Washer Name Role Phone Leana Lopez Primary Care Provider [phone] Encounter Details Date Type Department Care Team (Latest Contact Info) Description 10/25/2024 Travel Social History Tobacco Use Types Packs/Day Years [...] Sex Assigned at Female 10/25/2024 9:32 AM LUMBER SORTER MACHINE Legal Sex Female 9:40 PM CDT Gender Identity Not on file Sexual Orientation Not on file documented as of this encounter Plan of Treatment Not on file documented as of this encounter Visit Diagnoses Not on filedocumented in this encounter Additional Health Concerns Infection Onset Date Last Indicated Resolved Time COVID-19 Rule Out 10/25/2024 10/25/2024 10/25/2024 10:06 AM LUMBER SORTER MACHINE Influenza - Seasonal 10/25/2024 10/25/2024 Assessment Noted Time PHQ-9 Depression Total Score: 6 10/13/19 24 11:22 AM LUMBER SORTER MACHINE documented as of this encounter Care Teams Precipitate Washer Relationship Specialty Start Date End Date Leana Lopez FNP [address] [place] [address] PCP - General FAMILY PRACTICE 07/28/18 documented as of this encounter
--- OUTSIDE RECORDS SUMMARY | 2024-10-25 11:21 | XMS_ITS | Encounter Summary ---
Author Organization [facility] Address [address] [place] [address] Care Team Providers Care Patient Services Manager Name Role Phone Leana Lopez FER Primary Care Provider [phone] Encounter Details Date Type Department Care Team (Late st Contact Info) Description 12/31/2020 [employer] Message [facility] Family & Internal Medicine [address] [phone] [facility] Provider results Social History Tobacco Use Types Packs/Day Years Used Date Smoking Tobacco: Never Smokeless Tobacco: Never Alcohol Use Standard Drinks/Week Comments No 0 (1 standard drink = 0.6 oz pur e alcohol) AUDIT-C Answer Date Recorded Frequency of Alcohol Consumption Never 08/09/2018 Average Number of Drinks Not on file 018 Frequency of Binge Drinking Not on file 01/2018 PHQ-2 Answer Date Recorded PHQ-2 Score - If the patient scores above 3, please move on to questions 3-9 6 04/14/2020 Comments No Sex and Gender Information Value Date Recorded Sex Assigned at Female 10/25/2024 9:32 AM REGULATORY AFFAIRS DIRECTOR Legal Sex Female 9:40 PM CDT Gender Identity Not on file Sexual Orientation Not on file COVID-19 Exposure Response Date Recorded In the last month, have you been in contact with someone who was confirmed or suspected to have Coronavirus / COVID-19? No / Unsure 12/15/2020 3:53 PM CDT documented as of this encounter Plan of Treatment Not on file documented as of this encounter Visit Diagnoses Not on filedocumented in this encounter Additional Health Concerns Infection Onset Date Last Indicated Resolved Time COVID-19 Rule Out 10/25/2024 10/25/2024 10/25/2024 10:06 AM REGULATORY AFFAIRS DIRECTOR Influenza - Seasonal 10/25/2024 10/25/2024 Assessment Noted Time PHQ-9 Depression Total Score: 22 020 9:05 AM CDT documented as of this encounter Care Teams Patient Services Manager Relationship Specialty Start Date End Date Leana Lopez FNP [address] [place] [address] PCP - General FAMILY PRACTICE 07/28/18 documented as of this encounter
--- OUTSIDE RECORDS SUMMARY | 2024-10-25 11:21 | XMS_ITS | Patient Health Record ---
Author Organization [facility] Address [address] [facility] [address] [place] [address] Care Team Providers Care Shipping And Receiving Operator Name Role Phone Leana Pearson Primary Care Provider Unavail able DariusMargie Unavailable [phone] Allergies Allergen (clinical drug ingredient) Drug/Non Drug Allergy documented on EMR Reaction Allergy Type Onset Date Status meperidine Demerol Unknown Drug Allergy 12/12/2021 Activ e acetaminophen / oxycodone Percocet Unknown Drug Allergy 12/12/2021 Active predniSONE Unknown Drug Allergy 12/12/2021 Activ e codeine Codeine Unknown Drug Allergy 12/12/2021 Active ketorolac Ketorolac Unknown Drug Allergy 12/12/2021 Active Substance with sulfonamide structure and antibacterial mechanism of action (substance) Sulfa Antibiotics Unknown Drug Allergy 12/12/2021 Active tramadol Tramadol Unknown Drug Allergy 12/12/2021 Active Reason For Referral No Information Medications Medication SIG (Take, Route, Frequency, Duration) Notes Start Date End Date Status DULoxetine HCl 30 MG TAKE 1 CAPSULE BY MOUTH EVERY DAY for 30 Active Gabapentin 100 MG 1 capsule at bedtime Orally Once a day for 30 day(s) Active Hydroxychloroquine Sulfate 200 MG TAKE 2 TABLETS BY MOUTH EVERY DAY WITH FOOD 90 for 90 Active cyanocobalamin (vitamin B-12) 1 ,000 mcg/mL inject 1 milliliter (1,000 mcg) by subcutaneous route once a month injection *Reorder from [facility] for eRx and Interaction Alerts* Active Doxycycline Hyclate 100 MG TAKE 1 CAPSULE BY MOUTH TWICE A DAY FOR 10 DAYS Oral for 10 Days Active Magnesium 100 MG 2 tablets with meals Orally Twice a day for 30 day(s) Active Olmesartan Medoxomil 20 MG 1 tablet Orally Once a day for 30 day(s) Active Vitamin D (Ergocalciferol) 1.25 MG (05831 UT) take 1 capsule weekly Oral weekly for 30 days Active CoQ-10 100 MG as directed Orally Active Problems Problem Type SNOMED Code ICD Code Onset Dates Problem Status W/U Status Risk Notes Problem [id number] Osteoarthritis, unspecified osteoarthritis type, unspecified site (M19.90) Active confirmed Problem Connective tissue disease (981322842) Connective tissue disease (M35.9) Active confirmed Vital Signs Heart Rate 89 /min 07/25/2024 Temperature 97.7 degrees Fahrenheit 07/25/2024 Height-cm 170.18 cm 07/25/2024 Blood pressure diastolic 88 mm Hg 07/25/2024 Oximetry 96 % 07/25/2024 Weight-kg 97.23 kg 07/25/2024 Height 67 in 07/25/2024 Blood pressure systolic 140 mm Hg 07/25/2024 Weight 214.4 lbs 07/25/2024 BMI 33.58 kg/m2 07/25/2024 Encounters Encounter Location Date Provider Diagnosis [facility] [address] [facility] [address] [place] [address] 12/23/2023 Margie Darius Connective tissue di sease M35.9 ; Osteoarthritis, unspecified osteoarthritis type, unspecified site M19.90 ; High risk medication use Z79.899 and Weight gain R63.5 [facility] [address] [facility] [address] [place] [address] 07/25/2024 Margie Darius Connective tissue di sease M35.9 ; Osteoarthritis, unspecified osteoarthritis type, unspecified site M19.90 and High risk medication use Z79.899 [facility] [address] [facility] [address], [place] [address] 12/16/2023 [facility] [address] [facility] [address] [place] [address] 03/19/2024 [facility] [address] [facility] [address] [place] [address] 07/17/2024 [facility] Assessments Encounter Date Diagnosis (ICD Code) Assessment Notes Treatment Notes Treatment Clinical Notes Section Notes 12/23/2023 Osteoarthritis, unspecified osteoarthritis type, unspecified site (ICD-10 - M19.90) decrease gabapentin to 300mg qhs due to weight, continue plaquenil and cymbalta, return in 6 months 12/23/2023 Connective tissue disease (ICD-10 - M35.9) decrease gabapentin to 300mg qhs due to weight, continue plaquenil and cymbalta, return in 6 months 07/25/2024 Osteoarthritis, unspecified osteoarthritis type, unspecified site (ICD-10 - M19.90) mildly symptomatic, continue gabapentin, plaquenil and cymbalta, return in 6 months 07/25/2024 Connective tissue disease (ICD-10 - M35.9) mildly symptomatic, continue gabapentin, plaquenil and cymbalta, return in 6 months 07/25/2024 High risk medication use (ICD-10 - Z79.899) mildly symptomatic, continue gabapentin, plaquenil and cymbalta, return in 6 months 12/23/2023 High risk medication use (ICD-10 - Z79.899) decrease gabapentin to 300mg qhs due to weight, continue plaquenil and cymbalta, return in 6 months 12/23/2023 Weight gain (ICD-10 - R63.5) decrease gabapentin to 300mg qhs due to weight, continue plaquenil and cymbalta, return in 6 months Plan Of Treatment Next Appt Details Provider Name:Margie Mccoy, 01/23 01:45:00 PM, [address] , [address], [address], Insurance Providers Payer Name Payer Address Payer Phone Subscriber Number Group Number Insured Name Patient Relationship to Insured Coverage Start Date Coverage End Date [employer] [address] [address] [place] [address] [id number] Altom, Lylia Self - patient is the insured [employer] [address] [address] [place] [address] [id number] Altom, Lylia Self - patient is the insured [employer] [address] [address] [place] [address] [id number] Altom, Lylia Self - patient is the insured Medical (General) History Medical History History ICD Code Hyperlipidemia; Hypertension; Neuropathy; Vitamin D deficiency; Surgical History Surgery Date(Month/Year) ovarian; 2021-12-12 Hysterectomy; 2021-12-12 Exploratory Lap; 2021-12-16 cholecystectomy; 2021-12-16 Tonsillectomy; 2021-12-16 ankle fracture; 2021-12-16 Appendectomy; 2021-12-16
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
--- OUTSIDE RECORDS SUMMARY | 2024-10-25 11:21 | XMS_ITS | Encounter Summary ---
Author Organization [facility] Address [address] [place] [id number] Care Team Providers Care Hospice Rn Name Role Phone Leana Lopez Primary Care Provider [phone] Reason for Visit * Reason Onset Date Comments Medication Request 10/25/2024 Encounter Details Date Type Department Care Team (Late st Contact Info) Description 10/25/2024 Telephone [facility] Family & Internal Medicine [address] [place] [address] Leana Lopez FNP [facility] [place] [address] Medication Request Social History Tobacco Use Types Packs/Day Years [...] Sex Assigned at Female 10/25/2024 9:32 AM PROGRAM ADMINISTRATOR Legal Sex Female 9:40 PM CDT Gender Identity Not on file Sexual Orientation Not on file documented as of this encounter Plan of Treatment Not on file documented as of this encounter Visit Diagnoses Not on filedocumented in this encounter Additional Health Concerns Assessment Noted Time PHQ-9 Depression Total Score: 6 10/13/19 24 11:22 AM PROGRAM ADMINISTRATOR documented as of this encounter Care Teams Hospice Rn Relationship Specialty Start Date End Date Leana Lopez FNP [address] [place] [id number] PCP - General FAMILY PRACTICE 07/28/18 documented as of this encounter
--- OUTSIDE RECORDS SUMMARY | 2024-10-25 11:21 | XMS_ITS | Encounter Summary ---
Author Organization [facility] Address [address] [place] [id number] Care Team Providers Care Cooker Cleaner Name Role Phone Leana Lopez Primary Care Provider [phone] Encounter Details Date Type Department Care Team (Latest Contact Info) Description 05/12/2018 Abstract [facility] Medical Group Syed Knight MD Social History Tobacco Use Types Packs/Day Years Used Date Smoking Tobacco: Never Assessed Comments Unknown Sex and Gender Information Value Date Recorded Sex Assigned at Female 10/25/2024 9:32 AM CROZE MACHINE OPERATOR Legal Sex Female 9:40 PM CDT Gender Identity Not on file Sexual Orientation Not on file documented as of this encounter Plan of Treatment Not on file documented as of this encounter Visit Diagnoses Not on filedocumented in this encounter Additional Health Concerns Infection Onset Date Last Indicated Resolved Time COVID-19 Rule Out 10/25/2024 10/25/2024 10/25/2024 10:06 AM CROZE MACHINE OPERATOR Influenza - Seasonal 10/25/2024 10/25/2024 documented as of this encounter Care Teams Cooker Cleaner Relationship Specialty Start Date End Date Leana Lopez FNP [address] [place] [address] PCP - General FAMILY PRACTICE 07/28/18 documented as of this encounter
--- OUTSIDE RECORDS SUMMARY | 2024-10-25 11:21 | XMS_ITS | Clinical Summary ---
Author Organization [facility] [employer] Address [address] [place] [address] Care Team Providers Care Infantry Unit Leader Name Role Phone Leana Lopez MORELIA-LEARNING OPERATIONS SPECIALIST Primary Care Provider [phone] Source Comments [facility],non-owned Affiliates and Associated Physician Practices is amultiple site organization consisting of ambulatory clinics and hospital sitesin [place], [place], [place] and [place]. This disclosure is being madepursuant to the Care Everywhere program and may not contain all information available regarding this patient. Last updated 18.[facility] [employer] Allergies Active Allergy Reactions Criticality Noted Date Comments Meperidine Shortness of Breath High 06/23/2017 Oxycodone-Acetaminophen Rash Medium 06/23/2017 Penicillins Urticaria Medium 05/05/2018 Sulfa Drugs Nausea and/or Vomiting 05/04/2018 Tramadol Itching,Nausea and/or Vomiting 05/07/2018 makes me angry Medications * Be aware that medications may not be up to date on this document. Alwaysverify current medications with the patient. Medication Sig Dispensed Refills Start Date End Date Status tewlt-1-pyly ethyl esters (LOVAZA) 1 G capsule Take 2 g by mouth 2 times daily Active loratadine (CLARITIN) 10 MG tablet Take 10 mg by mouth once daily Active estradiol (ESTRACE) 0.5 MG tablet Take 0.5 mg by mouth once daily Active vitamin D, ergocalciferol, (DRISDOL) 79770 UNITS capsule TAKE ONE CAPSULE BY MOUTH ONCE WEEKLY DIRECTED 2 07/02/2018 Active lisinopril (PRINIVIL; ZESTRIL) 10 MG tablet TK 1 T PO QD 2 06/14/2018 A ctive fenofibrate (LOFIBRA) 160 MG tablet 07/14/2018 Active fluconazole (DIFLUCAN) 150 MG tablet 08/09/2018 Active Active Problems Problem Noted Date Diagnosed Date [...] of right foot with routine healing Immunizations Name Administration Dates Next Due INFLUENZA VACCINE, QUADR. (F LUZONE; FLULAVAL; FLUARIX; AFLURIA QUADRIVALENT; 6MO+), 0.5 ML (IIV4) 05/31/2018 Social History Tobacco Use Types Packs/Day Years [...] 95.3 kg (210 lb) 08/24/2018 10:11 AM NUT ROASTER Height 170.2 cm (5' 7 ) 08/24/2018 10:11 AM NUT ROASTER Body Mass Index 32.89 08/24/2018 10:11 AM NUT ROASTER Plan of Treatment Health Maintenance Due Date Last Done Comments COLOGUARD (AGES 45-75) - COLON CA SCREENING 1963 COLON MONITORING 1963 COLONOSCOPY - COLON CA SCREENING 1963 CT COLONOGRAPHY - COLON CA SCREENING 1963 Colorectal Cancer Screening 1963 FIT - COLON CA SCREENING 1963 FLEX SIG - COLON CA SCREENING 1963 LIPID TESTING 1963 MAMMOGRAM 1963 PAP SMEAR 1963 HIV SCREENING 1978 HEPATITIS C SCREENING 09/18/1981 DTAP/TDAP/TD VACCINES (1 - Tdap) 1982 PNEUMOCOCCAL VACCINE 50+ (1 of 1 - PCV) 2013 ZOSTER VACCINE (1 of 2) 2013 SCREENING FOR DIABETES 05/31/2021 8, 05/12/2018, 05/11/2018, Additional history exists COVID-19 VACCINE (1 - 2023- season) 2024 INFLUENZA VACCINE (#1) 2024 05/31/2018 DEPRESSION SCREENING 09/05/2024 Respiratory Syncytial Virus (RSV) Vaccine Pt: or over 60 yrs (1 - 1-dose 75+ series) 2038 HEPATITIS B VACCINE Aged Out No longe r eligible based on patient's age to complete this topic HIB VACCINE Aged Out No longer eligi ble based on patient's age to complete this topic HPV VACCINE Aged Out No longer eligi ble based on patient's age to complete this topic MENINGOCOCCAL (Group B) VACCINE Aged Out No longer eligible based on patient's age to complete this topic MENINGOCOCCAL VACCINE Aged Out No [place] eligible based on patient's age to complete this topic PNEUMOCOCCAL VACCINE Aged Out No long er eligible based on patient's age to complete this topic Medical Devices Implanted Type Area Office Technology Instructor Device Identifier Shelf Expiration Date Model / Serial / Lot 500mm Bar Implanted:Qty: 1 on 05/04/2018 by Gene Garza MD at [facility] Right: Leg [employer] Tra[employer] 02/12/2028 [id number] / / [id number] 500mm Bar Implanted:Qty: 1 on 05/04/2018 by Gene Garza MD at [facility] Right: Leg [employer] 06/19/2027 [id number] / / [id number] Post Extfix 30d Ang Implanted:Qty: 2 on 05/04/2018 by Gene Garza MD at [facility] Right: Leg [employer] [id number] / / Pin Hlf 225mm 5mm Jtx Lng Orth Ss 40mm Implanted:Qty: 2 on 05/04/2018 by Gene Garza MD at [facility] Right: Leg [employer] [id number] / / Pin Hlf 255mm 5mm Jtx Lng Ss 30mm Extfix Implanted:Qty: 2 on 05/04/2018 by Gene Garza MD at [facility] Right: Leg [employer] Tra[employer] [id number] / / Carbon Rods Implanted:Qty: 2 on 05/04/2018 by Gene Garza MD at [facility] Right: Leg [id number] / / Rancho Implanted:Qty: 2 on 05/04/2018 by Gene Garza MD at [facility] Right: Leg [id number] / / Bar To Bar Clamps Implanted:Qty: 4 on 05/04/2018 by Gene Garza MD at [facility] Right: Leg [id number] / / Wire K .062in 6in Fx 2 Troc Implanted:Qty: 1 on 05/08/2018 by Abelino Chaney DO at [facility] Right: Toe [employer] 03/15/2022 [id number] / / [id number] Plate 392pwe0-3.7mm 7 Hl Va Lck Lopro Ss Implanted:Qty: 1 on 05/30/2018 by Amari Willis DO at [facility] Right: Tibia [employer] Trauma [id number] / / Screw 3.5mm 14mm 15d 2.5mm Slf-Tap Lck Implanted:Qty: 1 on 05/30/2018 by Amari Willis DO at [facility] Right: Tibia [employer] Endoscopy [id number] / / Screw 3.5mm 18mm 15d 2.5mm Slf-Tap Lck Implanted:Qty: 1 on 05/30/2018 by Amari Willis DO at [facility] Right: Tibia [employer] Endoscopy [id number] / / Screw 3.5mm 30mm 20d 2.5mm Cortx Slf-Tap Implanted:Qty: 1 on 05/30/2018 by Amari Willis DO at [facility] Right: Tibia [employer] Endoscopy [id number] / / Screw 3.5mm 5.9mm 38mm 20d 2.5mm Hex Fib Implanted:Qty: 1 on 05/30/2018 by Amari Willis DO at [facility] Right: Tibia [employer] Trauma [id number] / / Screw 5mm 16mm 15d 2.5mm Ft Lopro Hex Ss Implanted:Qty: 1 on 05/30/2018 by Amari Willis DO at [facility] Right: Tibia [employer] [id number] / / Graft Bone Canc 4-10mm 30ml Frzdr Chp Implanted:Qty: 1 on 05/30/2018 by Amari Willis DO at [facility] Right: Tibia [employer] 08/07/2022 [id number] / / [id number] Screw 3.5mm 36mm Kyaw Nonlock Nonster Implanted:Qty: 1 on 05/30/2018 by Amari Willis DO at [facility] Right: Tibia [employer] 8150-37-036 / / Screw 3.5mm 42mm Ft Elb Kyaw Nonlock Hex Implanted:Qty: 1 on 05/30/2018 by Amari Willis DO at [facility] Right: Tibia [employer] 8150-37-042 / / Plate Std Crv 5 Hl Lck Tmx Tib Rt Prox Implanted:Qty: 1 on 05/30/2018 by Amari Willis DO at [facility] Right: Tibia [employer] [id number] / / Screw 3.5mm 50mm 2.2mm Tib Prox Mldir Implanted:Qty: 1 on 05/30/2018 by Amari Willis DO at [facility] Right: Tibia [employer] 8163-35-050 / / Screw 3.5mm 65mm 2.2mm Tib Prox Mldir Implanted:Qty: 2 on 05/30/2018 by Amari Willis DO at [facility] Right: Tibia [employer] 8163-35-065 / / Screw 3.5mm 70mm 2.2mm Tib Prox Mldir Implanted:Qty: 1 on 05/30/2018 by Amari Willis DO at [facility] Right: Tibia [employer] 8163-35-070 / / Screw 3.5mm 75mm 2.2mm Tib Prox Mldir Implanted:Qty: 1 on 05/30/2018 by Amari Willis DO at [facility] Right: Tibia [employer] 8163-35-075 / / Screw 3.5mm 80mm Tib Kyaw Prox Dist Sq Implanted:Qty: 1 on 05/30/2018 by Amari Willis DO at [facility] Right: Tibia [employer] 1312-18-080 / / Cannulated Screw, 4.0mm X 32mm 1/2 Thread Implanted:Qty: 1 on 05/30/2018 by Amari Willis DO at [facility] Right: Tibia [employer] Inc [id number] / / Cannulated Screw, 3.5mm X 36mm Partial Thread Implanted:Qty: 1 on 05/30/2018 by Amari Willis DO at [facility] Right: Tibia [employer] [id number] / / Explanted Type Area Office Technology Instructor Device Identifier Shelf Expiration Date Model / Serial / Lot Wire K 2mm 150mm Troc Pnt Ss Orth Fx Explanted:Qty: 3 on 05/30/2018 by Amari Willis DO at [facility] Right: Tibia [employer] Trauma [id number] / / Pin, Self-Drilling/S elf-Tapping Explanted:Qty: 1 on 05/30/2018 by Amari Willis DO at [facility] Right: Tibia RxRevu [id number] / / Screw 3.5mm 46mm Bone Explanted:Qty: 1 on 05/30/2018 by Amari Willis DO at [facility] Right: Tibia Ele [employer]omet 6 / / Screw 3.5mm 85mm Tib Kyaw Prox Dist Sq Explanted:Qty: 1 on 05/30/2018 by Amari Willis DO at [facility] Right: Tibia Ele [employer] 5 / / Wire K 1.6mm 6in Fem Tib Sm Frag Plate Explanted:Qty: 4 on 05/30/2018 by Amari Willis DO at [facility] Right: Tibia Ele [employer]omet [id number] / / Procedures Procedure Name Priority Date/Time Associated Diagnosis Comments BASIC METABOLIC PANEL (CALCIUM TOTAL) Routine 05/31/2018 4:15 AM CDT Closed displaced fracture of first metatarsal bone of right foot with routine healing, subsequent encounter from Last 3 Months or Most Recently Relevant to Health Maintenance Results * (ABNORMAL) BASIC METABOLIC PANEL (CALCIUM TOTAL) (05/31/2018 4:15 AM CDT) BUN 26 7 - 26 mg/dL 05/31/2018 4:47 AM [facility] Creatinine 1.4(H) 0.6 - 1.2 mg/dL 05/31/2018 4:47 AM [facility] Sodium 138 136 - 145 mmol/L 05/31/2018 4:47 AM [facility] Potassium 5.4(H) 3.5 - 4.5 mmol/L 05/31/2018 4:47 AM [facility] Chloride 104 98 - 107 mmol/L 05/31/2018 4:47 AM [facility] CO2 22 22 - 29 mmol/L 05/31/2018 4:47 AM [facility] Glucose 138(H) 70 - 115 mg/dL 05/31/2018 4:47 AM [facility] Calcium 8.3(L) 8.4 - 10.2 mg/dL 05/31/2018 4:47 AM [facility] Anion Gap 17 8 - 18 05/31/2018 4:47 AM [facility] BUN/Creatinine Ratio 19 7 - 23 05/31/2018 4:47 AM [facility] Osmolality Calculated 293 270 - 300 mOsm/kg 05/31/2018 4:47 AM [facility] eGFR 39(L) >60 mL/min/1.7 3 m2 05/31/2018 4:47 AM CDT [facility] Blood BLOOD SPECIMEN / Unknown Venipuncture / Unknown 05/31/2018 4:15 AM CDT 05/31/2018 4:30 AM CDT Gene Veras MD LAB - CHEMISTRY AGA [place] Organization Address City/State/ZIP Co de Phone Number [facility] [address] [phone] from Last 3 Months or Most Recently Relevant to Health Maintenance Advance Directives * Full Code (Latest Code Status on File) Date Activated Date Inactivated Comments 05/30/2018 5:53 PM 06/02/2018 8:29 PM * Full Code Date Activated Date Inactivated Comments 05/30/2018 5:44 AM 05/30/2018 5:53 PM * Full Code Date Activated Date Inactivated Comments 05/04/2018 10:02 PM 05/08/2018 1:58 PM Care Teams Infantry Unit Leader Relationship Specialty Start Date End Date Leana Lopez APRN-CNP [address] [place] [address] [phone] PCP - General 05/25/18
--- OUTSIDE RECORDS SUMMARY | 2024-10-25 11:21 | XMS_ITS | Encounter Summary ---
Author Organization [facility] Address [address] [place] [address] Care Team Providers Care Sand Caster Name Role Phone Leana Lopez FER Primary Care Provider [phone] Reason for Visit * Reason Comments Cough Patient c/o illness, malaise, and cough since July. Patient prescribed zpak on 10/23 but unable to finish d/t abd pain. Abdominal Pain Patient started to e xperience abd pain when she started zpak on 10/23/24 Yeast Infection Patient c/o yeast in fection since starting zpak Encounter Details Date Type Department Care Team (Late st Contact Info) Description 10/25/2024 9:20 AM LOGGING SUPERVISOR Office Visit [facility] [address] [phone] Wilmer Weir MD [address] [place] [address] Cough (Patient c/o illness, malaise, and cough since July. Patient prescribed zpak on 10/23 but unable to finish d/t abd pain. ); Abdominal Pain (Patient started to experience abd pain when she started zpak on 10/23/24); Yeast Infection (Patient c/o yeast infection since starting zpak) Social History Tobacco Use Types Packs/Day Years [...] Sex Assigned at Female 10/25/2024 9:32 AM LOGGING SUPERVISOR Legal Sex Female 9:40 PM CDT Gender Identity Not on file Sexual Orientation Not on file documented as of this encounter Last Filed Vital Signs Vital Sign Reading Time Taken Comments Blood Pressure 104/58 10/25/2024 9:32 AM LOGGING SUPERVISOR Pulse 102 10/25/2024 9:32 AM LOGGING SUPERVISOR Temperature 37.1 C (98.8 F) 10/25/2024 9:32 AM LOGGING SUPERVISOR Respiratory Rate 20 10/25/2024 9:32 AM LOGGING SUPERVISOR Oxygen Saturation 83% 10/25/2024 10:29 AM LOGGING SUPERVISOR Inhaled Oxygen Concentration - - Weight 94.5 kg (208 lb 4.8 oz) 10/25/2024 9:32 A M LOGGING SUPERVISOR Height 170.2 cm (5' 7 ) 10/25/2024 9:32 AM LOGGING SUPERVISOR Body Mass Index 32.62 10/25/2024 9:32 AM LOGGING SUPERVISOR documented in this encounter Progress Notes * Wilmer Weir MD - 10/25/2024 9:20 AM CST Images from the original note were not included. Office Progress Note Reason for Visit: Cough (Patient c/o illness, malaise, and cough since July. Patient prescribed zpak on 10/23 but unable to finish d/t abd pain. ), Abdominal Pain (Patient started to experience abd pain when she started zpak on 10/23/24), and Yeast Infection (Patient c/o yeast infection since starting zpak) History of Present Illness: She is here today complaining of a cough and weakness. She states that this started last , but her who is with her today states that it started on Tuesday. She has been very weak and been unable to get up out of bed or out of a chair by herself. She has a nonproductive cough and justoverall feels awful. She had called in last week and received a Z-Scottie but this really bothered her stomach. She has no exposure to anyone with influenza or COVID that she is aware. No nausea, vomiting or diarrhea. She is short of breath at rest. When she was placed in the room her pulse oximeter was 88% on room air. She has been taking nqve-zlf-ufcsdkq cold medications without improvement of her s ymptoms. ROS: Review of Systems All other systems reviewed and are negative. Medications: Current Outpatient Medications on File Prior to Visit Medication Sig albuterol sulfate HFA 108 (90 Base) MCG/ACT inhaler INHALE 2 PUFFS INTO THE LUNGS EVERY 6 HOURS NEEDED FOR WHEEZE cyanocobalamin (B-12) 1000 MCG/ML injection INJECT 1 ML INTRAMUSCULARYLY EVERY MONTH. cyanocobalamin (B-12) 1000 MCG/ML injection INJECT 1 ML INTRAMUSCULARYLY EVERY MONTH. DULoxetine (CYMBALTA) 60 MG capsule Take 1 capsule (60 mg total) by mouth daily. estradiol (ESTRACE) 0.1 MG/GM vaginal cream Place 2 g vaginally 3 (three) times a week. fenofibrate (TRICOR) 145 MG tablet Take 1 tablet (145 mg total) by mouth daily. fluticasone propionate 50 MCG/ACT nasal spray 2 sprays by Nasal route daily. gabapentin (NEURONTIN) 100 MG capsule Take 1 capsule (100 mg total) by mouth 2 (two) times daily. gabapentin (NEURONTIN) 300 MG capsule Take 1 capsule (300 mg total) by mouth 2 (two) times a day. hydroxychloroquine 200 MG tablet TAKE 1 TABLET BY ORAL ROUTE 2 TIMES PER DAY WITH FOOD Levocetirizine Dihydrochloride (XYZAL ALLERGY 24HR OR) multi vitamin/minerals (THERA-M ENHANCED) tablet Take 1 tablet by mouth daily. NEEDLE, DISP, 25 G (EASY TOUCH FLIPLOCK NEEDLES) 25G X 1 Misc Use to inject 1000 mg of B12 monthy nystatin (MYCOSTATIN) powder APPLY TO AFFECTED AREA 4 TIMES A DAY olmesartan (BENICAR) 20 MG tablet Take 1 tablet (20 mg total) by mouth daily. probiotic (FLORAJEN3) Cap capsule Take 1 capsule by mouth 3 (three) times daily with meals. Syringe/Needle, Disp, (SYRINGE 3CC/25GX1 ) 25G X 1 3 ML Misc Use IM to inject B12 monthly vitamin D2, ergocalciferol, (DRISDOL) 1.25 mg capsule TAKE ONE CAPSULE BY MOUTH ONCE WEEKLY DIRECTED Zinc 50 MG Cap No current facility-administered medications on file prior to visit. Allergies: Allergies Allergen Reactions Meperidine Shortness of Breath Sulfa Antibiotics Unknown, Nausea and Vomiting and Shortness of Breath Sulfamethoxazole-Trimethoprim Shortness of Breath Codeine Rash and Hives Ketorolac Rash and Hives Oxycodone-Acetaminophen Rash Penicillins Rash and Hives Prednisone Rash and Hives Tramadol Anxiety, Itching and Nausea and Vomiting makes me angry Medical History: Past Medical History: Diagnosis Date Anxiety 1982 Basically since adulthood Depression 1986 Since adulthood Elevated cholesterol Hypertension Lupus Neuromuscular disorder ([facility]) 2018 Rheumatoid arthritis, unspecified ([facility]) Surgical History: Past Surgical History: Procedure Laterality Date APPENDECTOMY CHOLECYSTECTOMY COLONOSCOPY FLX DX W/COLLJ SPEC WHEN PFRMD 04/20/2019 Dr. Yonathan Dubose/moderate internal hemorrhoids/repeat screening 2028 EXPLORATORY LAPAROSCOPY 2011 FRACTURE SURGERY 2018 HYSTERECTOMY ORIF ANKLE FRACTURE TONSILLECTOMY Social History: Social History Socioeconomic History Marital status: Tobacco Use Smoking status: Never Passive exposure: Never Smokeless tobacco: Never Vaping Use Vaping status: Never Used Substance and Sexual Activity Alcohol use: No Drug use: No Sexual activity: Yes Partners: Male control/protection: Post-menopausal Family History: Family History Problem Relation Name Age of Onset Cancer Sister breast Heart Sister Lupus Sister Cancer Maternal Aunt Joan Hernandez Breast Cancer Paternal Aunt breast Cancer Mother pancreatic Heart Attack Father Faisal Mandujano Hyperlipidemia Father Faisal Mandujano Depression Father Faisal Mandujano Early Father Faisal Mandujano Dies at 52 Cancer Sister Ce Lucas breast cancer PE: Physical Exam Vitals and nursing note reviewed. Constitutional: Appearance: Normal appearance. She is well-developed. HENT: Head: Normocephalic and atraumatic. Eyes: Extraocular Movements: Extraocular movements intact. Conjunctiva/sclera: Conjunctivae normal. Pupils: Pupils are equal, round, and reactive to light. Neck: Vascular: Normal carotid pulses. No carotid bruit. Cardiovascular: Rate and Rhythm: Normal rate and regular rhythm. Heart sounds: Normal heart sounds. No murmur heard. No friction rub. No gallop. Pulmonary: Effort: Pulmonary effort is normal. No respiratory distress. Breath sounds: Normal breath sounds. No wheezing. Skin: General: Skin is warm and dry. Neurological: Mental Status: She is alert and oriented to person, place, and time. Psychiatric: Behavior: Behavior normal. Judgment: Judgment normal. Filed Vitals: 10/25/24 0932 BP: 104/58 Pulse: (!) 102 Resp: 20 Temp: 98.8 ??F (37.1 ??C) TempSrc: Skin SpO2: (!) 87% Weight: 94.5 kg (208 lb 4.8 oz) Height: 1.702 m (5' 7 ) Diagnoses/Impression: 1. Influenza A 2. Hypoxia XR CHEST PA+LAT CORONAVIRUS (COVID-19) INFLUENZA A & B ANTIGEN IA PANEL Recommendations and Plan: 1. Influenza A (Primary) She is out of the window for treatment with antivirals Since she is hypoxic (SaO2 83% at rest) she will go to the ED for further evaluation and likely admission. Patient going to [place] ED by private vehicle, will take her and they refused ambulance 2. Hypoxia CXR no lobar pneumonia ED visit. - XR CHEST PA+LAT; Future - CORONAVIRUS (COVID-19) INFLUENZA A & B ANTIGEN IA PANEL I personally spent a total of 31 minutes on the day of the encounter. This includes tpky-bm-fhzy and fbp-thoi-jd-face time I provided on the day of the encounter & excludes time spent performing separately reportable services. Orders Placed This Encounter XR CHEST PA+LAT CORONAVIRUS (COVID-19) INFLUENZA A & B ANTIGEN IA PANEL PCP: WILMER WEIR MD 10/25/2024 ING SUPERVISOR documented in this encounter Plan of Treatment Not on file documented as of this encounter Procedures Procedure Name Priority Date/Time Associated Diagnosis Comments CORONAVIRUS (COVID-19) INFLUENZA A & B ANTIGEN IA PANEL Routine 10/25/2024 Hypoxia documented in this encounter Results * XR CHEST PA+LAT (10/25/2024 9:57 AM LOGGING SUPERVISOR) Anatomical Region Laterality Modality Chest Radiographic Linda ging 10/25/2024 10:0 1 AM LOGGING SUPERVISOR Impressions 10/25/2024 10:01 AM LOGGING SUPERVISOR IMPRESSION: No acute findings Ordered By: WILMER WEIR Interpreted By: Kodi Escobar MD, 10/25/2024 10:01 AM Narrative 10/25/2024 10:01 AM LOGGING SUPERVISOR [facility] [place] [address] 2 VIEWS OF THE CHEST Clinical history: Hypoxia Comparison: None 2 views of the chest demonstrate the cardiac silhouette to be normal in size and appearance. The pulmonary vasculature appears normal. The Lungs are clear. No consolidations or effusions are seen. Procedure Note Kodi Escobar MD - 10/25/2024 [place] [address] 2 VIEWS OF THE CHEST Clinical history: [...] A & B ANTIGEN IA PANEL (10/25/2024) CORONAVIRUS ANTIGEN IA NEGATIVE NEGATIVE [facility] INFLUENZA A POSITIVE(A) NEGATIVE [facility] INFLUENZA B NEGATIVE NEGATIVE [facility] Internal Control: VALID VALID [facility] NASAL STRUCTURE / Unknown 10/25/2024 Wilmer Weir MD MICROBIOLOGY - GENERAL ORDERAB [place] [address], documented in this encounter Visit Diagnoses Diagnosis Influenza A- Primary Influenza with other respiratory manifestations Hypoxia Hypoxemia documented in this encounter Additional Health Concerns Infection Onset Date Last Indicated Resolved Time COVID-19 Rule Out 10/25/2024 10/25/2024 10/25/2024 10:06 AM LOGGING SUPERVISOR Influenza - Seasonal 10/25/2024 10/25/2024 Assessment Noted Time PHQ-9 Depression Total Score: 6 10/13/19 24 11:22 AM LOGGING SUPERVISOR documented as of this encounter Care Teams Sand Caster Relationship Specialty Start Date End Date Leana Lopez FNP [address] [place] [phone] PCP - General FAMILY PRACTICE 07/28/18 documented as of this encounter
--- OUTSIDE RECORDS SUMMARY | 2024-10-25 11:21 | XMS_ITS | Referral Summary ---
Author Organization [facility] [employer] Address [address] [place] [address] Care Team Providers Care Baseball Scout Name Role Phone Leana Lopez MORELIA-SPOOL WINDER Primary Care Provider [phone] Source Comments [facility],non-owned Affiliates and Associated Physician Practices is amultiple site organization consisting of ambulatory clinics and hospital sitesin [place], [place], [place] and [place]. This disclosure is being madepursuant to the Care Everywhere program and may not contain all information available regarding this patient. Last updated 18.[facility] [employer] Allergies Active Allergy Reactions Criticality Noted Date [...] Dispensed Refills Start Date End Date Status uhkwi-5-ocyu ethyl esters (LOVAZA) 1 G capsule Take 2 g by mouth 2 times daily Active loratadine (CLARITIN) 10 MG tablet Take 10 mg by mouth once daily Active estradiol (ESTRACE) 0.5 MG tablet Take 0.5 mg by mouth once daily Active vitamin D, ergocalciferol, (DRISDOL) 21384 UNITS capsule TAKE ONE CAPSULE BY MOUTH [...] 95.3 kg (210 lb) 08/24/2018 10:11 AM [employer] Height 170.2 cm (5' 7 ) 08/24/2018 10:11 AM [employer] Body Mass Index 32.89 08/24/2018 10:11 AM [employer] Functional Status Functional Status Response Date of Assess ment Is person deaf or have serious hearing difficult y? No 06/02/2018 Is person blind or have serious difficulty seein g? No 06/02/2018 Does person have serious dif ficulty walking/climbing stairs? Yes 06/02/2018 Does person have difficulty dressing/bathing? No 06/02/2018 Does person have difficulty doing errands alone? Yes 06/02/2018 Cognitive Status Response Date of Assessm ent Does person have difficulty concentrating/remembering/making decisions? No 06/02/2018 Plan of Treatment Not on file Medical Devices Implanted Type Area Shop Tailor Apprentice Device Identifier Shelf Expiration Date Model / Serial / Lot 500mm Bar Implanted:Qty: 1 on 05/04/2018 by Gene Garza MD at [facility] Right: Leg [employer] 02/12/2028 [id number] / / [id number] 500mm Bar Implanted:Qty: 1 on 05/04/2018 by Gene Garza MD at [facility] Right: Leg [employer] 06/19/2027 [id number] / / [id number] Post Extfix 30d Ang Implanted:Qty: 2 on 05/04/2018 by Gene Garza MD at [facility] Right: Leg [employer] [id number] / / Pin Hlf 225mm 5mm Jtx Lng Orth Ss 40mm Implanted:Qty: 2 on 05/04/2018 by Gene Garza MD at [facility] Right: Leg [employer] [id number] / / Pin Hlf 255mm 5mm Jtx Lng Ss 30mm Extfix Implanted:Qty: 2 on 05/04/2018 by Gene Garza MD at [facility] Right: Leg [employer] [id number] / / Carbon Rods Implanted:Qty: 2 on 05/04/2018 by Gene Garza MD at [facility] Right: Leg [id number] / / Rancho Implanted:Qty: 2 on 05/04/2018 by Gene Garza MD at [facility] Right: Leg [id number] / / Bar To Bar Clamps Implanted:Qty: 4 on 05/04/2018 by Gene Garza MD at [facility] Right: Leg [id number] / / Wire K .062in 6in Fx 2 Troc Implanted:Qty: 1 on 05/08/2018 by Abelino Chaney DO at [facility] Right: Toe [employer] 03/15/2022 [id number] / / [id number] Plate 998cqn4-2.7mm 7 Hl Va Lck Lopro Ss Implanted:Qty: 1 on 05/30/2018 by Amari Willis DO at [facility] Right: Tibia [employer] [id number] / / Screw 3.5mm 14mm 15d 2.5mm Slf-Tap Lck Implanted:Qty: 1 on 05/30/2018 by Amari Willis DO at [facility] Right: Tibia [employer] [id number] / / Screw 3.5mm 18mm 15d 2.5mm Slf-Tap Lck Implanted:Qty: 1 on 05/30/2018 by Amari Willis DO at [facility] Right: Tibia [employer] [id number] / / Screw 3.5mm 30mm 20d 2.5mm Cortx Slf-Tap Implanted:Qty: 1 on 05/30/2018 by Amari Willis DO at [facility] Right: Tibia [employer] 6536-4436 / / Screw 3.5mm 5.9mm 38mm 20d 2.5mm Hex Fib Implanted:Qty: 1 on 05/30/2018 by Amari Willis DO at [facility] Right: Tibia [employer] [id number] / / Screw 5mm 16mm 15d 2.5mm Ft Lopro Hex Ss Implanted:Qty: 1 on 05/30/2018 by Amari Willis DO at [facility] Right: Tibia [employer] [id number] / / Graft Bone Canc 4-10mm 30ml Frzdr Chp Implanted:Qty: 1 on 05/30/2018 by Amari Willis DO at [facility] Right: Tibia [employer] 08/07/2022 [id number] / / [id number] Screw 3.5mm 36mm Kyaw Nonlock Nonster Implanted:Qty: 1 on 05/30/2018 by Amari Willis DO at [facility] Right: Tibia [employer] 8150-37-036 / / Screw 3.5mm 42mm Ft Elb Kyaw Nonlock Hex Implanted:Qty: 1 on 05/30/2018 by Amari Willis DO at [facility] Right: Tibia [employer] 8150-37-042 / / Plate Std Crv 5 Hl Lck Tmx Tib Rt Prox Implanted:Qty: 1 on 05/30/2018 by Amari Willis DO at [facility] Right: Tibia [employer] 8162-35-805 / / Screw 3.5mm 50mm 2.2mm Tib Prox Mldir Implanted:Qty: 1 on 05/30/2018 by Amari Willis DO at [facility] Right: Tibia [employer] 8163-35-050 / / Screw 3.5mm 65mm 2.2mm Tib Prox Mldir Implanted:Qty: 2 on 05/30/2018 by Amari Willis DO at [facility] Right: Tibia [employer] 8163-35-065 / / Screw 3.5mm 70mm 2.2mm Tib Prox Mldir Implanted:Qty: 1 on 05/30/2018 by Amari Willis DO at [facility] Right: Tibia [employer] 8163-35-070 / / Screw 3.5mm 75mm 2.2mm Tib Prox Mldir Implanted:Qty: 1 on 05/30/2018 by Amari Willis DO at [facility] Right: Tibia [employer] 8163-35-075 / / Screw 3.5mm 80mm Tib Kyaw Prox Dist Sq Implanted:Qty: 1 on 05/30/2018 by Amari Willis DO at [facility] Right: Tibia [employer] 1312-18-080 / / Cannulated Screw, 4.0mm X 32mm 1/2 Thread Implanted:Qty: 1 on 05/30/2018 by Amari Willis DO at [facility] Right: Tibia Ele Inc [id number] / / Cannulated Screw, 3.5mm X 36mm Partial Thread Implanted:Qty: 1 on 05/30/2018 by Amari Willis DO at [facility] Right: Tibia [employer] Inc [id number] / / Explanted Type Area Shop Tailor Apprentice Device Identifier Shelf Expiration Date Model / Serial / Lot Wire K 2mm 150mm Troc Pnt Ss Orth Fx Explanted:Qty: 3 on 05/30/2018 by Amari Willis DO at [facility] Right: Tibia [employer] [id number] / / Pin, Self-Drilling/S elf-Tapping Explanted:Qty: 1 on 05/30/2018 by Amari Willis DO at [facility] Right: Tibia [employer] 5018-5-150 / / Screw 3.5mm 46mm Bone Explanted:Qty: 1 on 05/30/2018 by Amari Willis DO at [facility] Right: Tibia Ele [employer]omet 6 / / Screw 3.5mm 85mm Tib Kyaw Prox Dist Sq Explanted:Qty: 1 on 05/30/2018 by Amari Willis DO at [facility] Right: Tibia Ele [employer] 5 / / Wire K 1.6mm 6in Fem Tib Sm Frag Plate Explanted:Qty: 4 on 05/30/2018 by Amari Willis DO at [facility] Right: Tibia [employer]omet 62760-5 / / Procedures Procedure Name Priority Date/Time [...] 7 - 26 mg/dL 05/31/2018 4:47 AM T [facility] Creatinine 1.4(H) 0.6 - 1.2 mg/dL 05/31/2018 4:47 AM [facility] Sodium 138 136 - 145 mmol/L 05/31/2018 4:47 AM [facility] Potassium 5.4(H) 3.5 - 4.5 mmol/L 05/31/2018 4:47 AM [facility] Chloride 104 98 - 107 mmol/L 05/31/2018 4:47 AM [facility] CO2 22 22 - 29 mmol/L 05/31/2018 4:47 AM [facility] Glucose 138(H) 70 - 115 mg/dL 05/31/2018 4:47 AM [facility] Calcium 8.3(L) 8.4 - 10.2 mg/dL 05/31/2018 4:47 AM [facility] Anion Gap 17 8 - 18 05/31/2018 4:47 AM [facility] BUN/Creatinine Ratio 19 7 - 23 05/31/2018 4:47 AM [facility] Osmolality Calculated 293 270 - 300 mOsm/kg 05/31/2018 4:47 AM [facility] eGFR 39(L) >60 mL/min/1.7 3 m2 05/31/2018 4:47 AM [facility] Blood BLOOD SPECIMEN / Unknown Venipuncture / Unknown 05/31/2018 4:15 AM CDT 05/31/2018 4:[address] [facility] Gene Veras MD LAB - CHEMISTRY AGA [facility]LL[facility] Organization Address [facility]/State/ZIP Co de Phone Number [facility] [address] [phone] from Last 3 Months or Most Recently Relevant to Health Maintenance Advance Directives * Full Code (Latest Code Status on File) Date Activated Date Inactivated Comments 05/30/2018 5:53 PM 06/02/2018 8:29 PM * Full Code Date Activated Date Inactivated Comments 05/30/2018 5:44 AM 05/30/2018 5:53 PM * Full Code Date Activated Date Inactivated Comments 05/04/2018 10:02 PM 05/08/2018 1:58 PM Care Teams Baseball Scout Relationship Specialty Start Date End Date Leana Lopez APRN-[place] [address] [place] [id number] PCP - General 05/25/18
--- OUTSIDE RECORDS SUMMARY | 2024-10-25 11:21 | XMS_ITS | Data Portability ---
Author Organization [facility] [employer] , [facility] Address [address] [place] [address] Assessment Encounter Date Assessment Date Assessment LastModified by Organization Details LastModified Time 03/26/2022 03/26/2022 OAB Vs UTI- check Urine C&S - Discussed etiology and common treatment options including lifestyle changes, PFPT, medications, PTN stimulation, among others - Continue to limit caffeine and bladder irritants Bladder training discussed. [email or web address] Not available 05/31/2022 01:11:29 Plan of Treatment Reminders Order Date Submit Date Provider Last Modified By Organization Details Last Modified Time Details Appointments None record ed. Lab cultur e, urine 2021 022 [email or web address] [employer], [address], [place], [address], 16:07:10 Referral None record ed. Procedures None record ed. Surgeries None record ed. Imaging None record ed. Medication Orders None record ed. Patient TargetsNo targets recorded. Patient Instructions Encounter Date Encounter Id Patient Instructions Last Modified By Organization Details Last Modified Time 03/26/2022 [id number] Urinary Tract Infection (UTI) in Women: Care Instructions [email or web address] Not available 05/31/2022 01:06:44 Reason for Referral None Reported. Results Created Date Observation Date Name Description Value Unit Range Abnormal Flag Note LastModifiedBy Organization Detail LastModifiedTime 03/26/2003/27/2022 CULTU RE, URINE , ROUTI NE culture, urine, routine SEE NOTE CULTU RE, URINE , ROUTI NE Micro Numbe r: [id number] Test Statu s: Final Speci men Sourc e: Urine , clean catch Speci men Quali ty: Adequ ate Resul t: Mixed genit al tony isola shahida. These super ficia l bacte zeeshan are not indic ative of a urina ry tract infec tion. No furth er organ ism ident ifica tion is warra nted on this speci men. If clini domenico indic ated, recol lect clean -catc h, mid-s tream urine and trans grayson immed iatel y to Urine Cultu re Trans port Tube. Not Available [employer] [facility] [address] [place], [address], 03/28/2022 00:00:40 Result Notes None recorded. Problems Name Problem SNOMED Code Status Onset Date Resolution Date Notes Provider Name and Address Organization Details Recorded Time Urge incontinen ce of urine 62447205 Active 2020 Urge incontinen ce; Progress: Stable Added By: Gracy Baldwin Add to Current Problems: YES ProblemSta tus: Current Not Available [facility] 2 18:28:43 Atrophic vaginitis 57492611 Active 2020 Postmenopa usal atrophic vaginitis; Progress: Stable Added By: Angelo Rowe Add to Current Problems: YES ProblemSta tus: Current Not Available [facility] 2 18:28:52 Problem Notes None recorded. Procedures Surgical History Date Name Laterality Status Provider Name and Address Organization Details Recorded Time cholecystectomy completed [facility] 03/25/2022 22:05:19 tonsillectomy completed Kelly [facility] 03/25/2022 22:05:28 excision of bilateral fallopian tubes and ovaries completed Kelly [facility]rus[facility] 03/25/2022 22:05:42 operative procedure on knee completed Kelly [facility]rus[facility] 03/25/2022 22:05:53 operative procedure on foot completed Kelly [facility]rus[facility] 03/25/2022 22:06:04 hysterectomy completed [facility] 03/25/2022 22:06:14 Imaging Results None recorded. Procedure Notes None recorded. Medical Equipment None Reported. Allergies Allergen ID Allergen Name Allergen Category Reaction Reaction Severity Criticality Documentation Date Start Date Code Code System Note Provider Name and Address Organization Details Recorded Time 020522 Product containin g penicilli n (product) medicatio n Not available Not available Not available 06/26/20212020 88583 8001 SNOMED Sever ity: Moder ate; Not Available Not Available Not Available 829683 sulfathia zole medicatio n Not available Not available Not available 06/26/20212020 07938 RxNorm Sever ity: Moder ate; Not Available Not Available Not Available 303859 Toradol medicatio n Not available Not available Not available 06/26/20212020 07092 RxNorm Sever ity: Moder ate; Not Available Not Available Not Available 162499 tramadol Not available Not available Not available Not available 06/26/20212020 97152 RxNorm Sever ity: Moder ate; Not Available Not Available Not Available Medications Name Sig Start Date Stop Date Status Note LastModified by Organization Details LastModified Time BD Luer-Rad Syringe 3 mL 23 x 1 USE TO INJECT B12 MONTHLY 03/26 completed Not Available Not Available Not Available fluconazo le 150 mg tablet TAKE 1 TABLET BY MOUTH ONCE FOR 1 DOSE. MAY REPEAT DOSE IN 72 HOURS IF NEEDED 03/26 completed Not Available Not Available Not Available benzonata te 200 mg capsule TAKE 1 CAPSULE BY MOUTH 3 TIMES DAILY NEEDED FOR COUGH 03/26 completed Not Available Not Available Not Available ciproflox acin 250 mg tablet TAKE 1 TABLET BY MOUTH IN THE MORNING AND AT BEDTIME FOR 7 DAYS 03/26 completed Not Available Not Available Not Available phenazopy ridine 100 mg tablet TAKE 1 TABLET BY MOUTH THREE TIMES DAILY NEEDED 03/26 completed Not Available Not Available Not Available cyanocoba taz (vit B-12) 1,000 mcg/mL injection solution INJECT 1 ML INTRAMUS CULARYLY EVERY MONTH. 03/26 completed Not Available Not Available Not Available telmisart an 40 mg tablet TAKE 1 TABLET BY MOUTH EVERY DAY active Not Available Not Available No t Available gabapenti n 100 mg capsule TAKE 1 CAPSULE BY MOUTH NIGHTLY AT BEDTIME. active Not Available Not Available No t Available ergocalci ferol (vitamin D2) 1,250 mcg (50,000 unit) capsule TAKE ONE CAPSULE BY MOUTH ONCE WEEKLY DIRECTED 03/26 completed Not Available Not Available Not Available hydroxych loroquine 200 mg tablet TAKE 1 TABLET BY ORAL ROUTE 2 TIMES PER DAY WITH FOOD active Not Available Not Available No t Available estradiol 0.01% (0.1 mg/gram) vaginal cream INSERT 1 GRAM BY VAGINAL ROUTE 2 TIMES PER WEEK 03/26 completed Not Available Not Available Not Available methylpre dnisolone 4 mg tablets in a dose pack TAKE DIRECTED PER PACKAGE INSTRUCT IONS FOR A 6 DAY SUPPLY 03/26 completed Not Available Not Available Not Available oxybutyni n chloride 5 mg tablet TAKE 1 TABLET BY MOUTH DAILY 03/26 completed Not Available Not Available Not Available amoxicill in 875 mg-potass ium clavulana te 125 mg tablet TAKE 1 TABLET BY MOUTH TWICE A DAY FOR 10 DAYS 03/26 completed Not Available Not Available Not Available olmesarta n 20 mg tablet TAKE 1 TABLET BY MOUTH EVERY DAY 03/26 completed Not Available Not Available Not Available nitrofura ntoin monohydra te/macroc rystals 100 mg capsule TAKE 1 CAPSULE BY MOUTH TWICE A DAY FOR 7 DAYS 03/26 completed Not Available Not Available Not Available solifenac in 10 mg tablet TAKE 1 TABLET BY MOUTH EVERY DAY 03/26 completed Not Available Not Available Not Available Stool Softener 03/26 completed Stool Softener Allow Substitu tion: False Refill Denied: No Refill DateOccu rred: 09/23/19 Edited by: Gracy Cooper ) on 09/23/19 Stopped by: Gracy Cooper ) on Not Available Not Available Not Available Vitamin D3 03/26 completed Vitamin D3 Allow Substitu tion: False Refill Denied: No Refill DateOccu rred: 09/23/19 Edited by: Gracy Cooper ) on 09/23/19 Stopped by: Gracy Cooper ) on Not Available Not Available Not Available nitrofura ntoin 100mg 03/26 completed nitrofur antoin RxNorm: 443992 Allow Substitu tion: False Refill Denied: No Refill DateOccu rred: 09/23/19 21 Edited by: te gomez(Albrig ht, Angelo S) on 09/23/19 21 Stopped by: te gomez(Albrig ht, Angelo S) on Not Available Not Available Not Available One Daily Womens 50 Plus 03/26 completed One Daily Womens 50 Plus Allow Substitu tion: False Refill Denied: No Refill DateOccu rred: 09/23/19 21 Edited by: Gracy Cooper ) on 09/23/19 21 Stopped by: Gracy Cooper ) on Not Available Not Available Not Available ciproflox acin 0.2 % ear drops in a dropperet te INSTILL 1 DROP INTO AFFECTED EAR TWICE A DAY FOR 7 DAYS 03/26 completed Not Available Not Available Not Available B12 03/26 completed B12 Allow Substitu tion: False Refill Denied: No Refill DateOccu rred: 09/23/19 21 Edited by: Gracy Cooper ) on 09/23/19 21 Stopped by: Gracy Cooper ) on Not Available Not Available Not Available Probiotic 03/26 completed Probioti c Allow Substitu tion: False Refill Denied: No Refill DateOccu rred: 09/23/19 21 Edited by: Gracy Cooper ) on 09/23/19 21 Stopped by: Gracy Cooper ) on Not Available Not Available Not Available Vitals Date Recorded Body weight Systolic blood pressure Diastolic blood pressure Provider Name and Address Organization Details Last Updated DateTime 03/26/2022 79666.03 g 126 mm[Hg] 80 mm[Hg] Kimber Chin [facility] 03/26/2022 16:27:44 Social History None recorded. Functional Status None recorded. Mental Status None recorded. Family History Relationship Description Onset Age of this Age Resolved Age Notes LastModified by Organization Details LastModified Time Father Hyperlipidem ia [email or web address] Not available 03/06 22:04:43 Maternal Aunt Malignant tumor of breast dpietrusiak Not available 03/06 22:04:55 Sister Malignant tumor of breast dpietrusiak Not available 03/06 22:04:55 Mother Malignant tumor of pancreas dpietrusiak Not available 03/06 22:05:06 Medical History No medical history recorded. Gynecological History Statement/Question Response Date of Last Pap Smear Current Control Method Hysterectom y Obstetrics History GPAL:G 1 P 1 0 0 0 Type Value Full Term 1 Total 1 Past Encounters Encounter ID Performer Location Encounter Start Date Encounter Closed Date Diagnosis/Indication Diagnosis SNOMED-CT Code Diagnosis ICD10 Code Diagnosis Note [id number] JOCELIN TA MD [facility] [address] [place] [address] 03/26/2022 15:28:58 06/08/2022 12:11:41 Urinary tract infectious disease 68347660 N39.0 Health Concerns Section Related Observation LastModified by Organization Detai ls LastModified Time None Recorded Concern Status LastModified by Organization Details LastModified Time None Recorded Advance Directives Directive None Recorded Payers Encounter Date Sequence Insurance Name Policy Number Policy Espinal Covered Member ID Espinal Member ID Guarantor Name 03/26/2022 1 [facility] [id number] Julia Sam [place] [id number] Barbaraa Flaco Alt[place]ie 03/26/2022 2 [facility] Joaquin [facility] [id number] Julia Malhotra Notes Date Note Type Note Provider Name and Address Organization Details Recorded Time 03/26/2022 text/html Lower Urinary Tract Symptoms (LUTS)Reported bypatient.Location :bilateral Duration:chronic 56 yo postmenopausal, post hysterectomy status- here with hx of freq q UTIDenies any fever/ chills or abdominal pain.Similar s/s in the last few years with urge, been on solifenacin. JOCELIN PARHAM MD [address] [facility], [place], [address], [facility] [[email or web address] 05/31/2022 01:11:44 OBGyn Episode No OBEpisode recorded.
--- OUTSIDE RECORDS SUMMARY | 2024-10-25 11:21 | XMS_ITS ---
Author Organization [facility] Address [address] [place] [address] Care Team Providers Care Regulatory Compliance Director Name Role Phone Leana Pearson Primary Care Provider Unavail able Margie Weinstein Unavailable [phone] Allergies Allergen (clinical drug ingredient) Drug/Non Drug [...] tramadol Tramadol Unknown Drug Allergy 12/12/2021 Active REASON FOR VISIT yd,f/u,cc, CTD Medications Medication SIG (Take, Route, Frequency, Duration) Notes Start Date End Date Status Gabapentin 100 MG 1 capsule at bedtime Orally Once a day for 30 day(s) Active Magnesium 100 MG 2 tablets with meals Orally Twice a day for 30 day(s) Active Olmesartan Medoxomil 20 MG 1 tablet Orally Once a day for 30 day(s) Active Vitamin D (Ergocalciferol) 1.25 MG (61029 UT) take 1 capsule weekly Oral Active CoQ-10 100 MG as directed Orally Active Doxycycline Hyclate 100 MG TAKE 1 CAPSULE BY MOUTH TWICE A DAY FOR 10 DAYS Oral for 10 Days Active Hydroxychloroquine Sulfate 200 MG TAKE 2 TABLETS BY MOUTH EVERY DAY WITH FOOD 90 for 90 Active cyanocobalamin (vitamin B-12) 1 ,000 mcg/mL inject 1 milliliter (1,000 mcg) by subcutaneous route once a month injection *Reorder from [employer] for eRx and Interaction Alerts* Active DULoxetine HCl 30 MG TAKE 1 CAPSULE BY MOUTH EVERY DAY Orally Once a day for 30 days Active Problems Problem Type SNOMED Code ICD Code Onset Dates Problem Status W/U Status Risk Notes Problem Connective tissue disease (074695044) Connective tissue disease (M35.9) Active confirmed Vital Signs Temperature 97.7 degrees Fahrenheit 07/25/20 24 Blood pressure systolic 140 mm Hg 07/25/20 24 Blood pressure diastolic 88 mm Hg 024 Heart Rate 89 /min 07/25/2024 Height 67 in 07/25/2024 Weight 214.4 lbs 07/25/2024 BMI 33.58 kg/m2 07/25/2024 Oximetry 96 % 07/25/2024 Height-cm 170.18 cm 07/25/2024 Weight-kg 97.23 kg 07/25/2024 Encounters Encounter Location Date Provider Diagnosis [facility] [address] [place] [address] 07/25/2024 Margie Weinstein Connective tissue di sease M35.9 ; Osteoarthritis, unspecified osteoarthritis type, unspecified site M19.90 and High risk medication use Z79.899 Assessments Encounter Date Diagnosis (ICD Code) Assessment Notes Treatment Notes Treatment Clinical Notes Section Notes 07/25/2024 Connective tissue disease (ICD-10 - M35.9) [...] months Plan Of Treatment Next Appt Details Follow Up: 6 Months, Reason: Provider Name:Margie Weinstein, 01/23 01:45:00 PM, [address], [address], [place], [address], Progress Notes * Julia DESOUZA ADOB:1965 (58 yo F)Acc No.[id number]:07/25/2024 Progress Notes Patient: Julia TAM Provider: Riri WEINSTEIN MD :1965 A ge:58 Y S ex:Female Date:07/25/2024 [facility] [address] [facility] [facility] Pcp:FER Hill Subjective: * Chief Complaints: * Y d,f/u,ccCTD * HPI: G eneral Follow up: was on plaquenil 400mg/day, decreased to 200mg/day on her own, on Cymbalta 60mg/day and gabapentin 300mg QHS, fingers, toes and back ache, feesl tired, has had toruble sleeping, exercises 3 times per week On 12/18/2021, anti-SSA/SSB (-), NOEL 1:160 (homogeneous), cascade (-), HBV/HCV (- ), CK normal, ESR and CRP normal, X-rays of hands: OA, X-rays of feet: OA, heel spurs, calcification at insertion sites of Achilles tendons On 11/27/2021, RF (-), anti-CCP (-), uric acid 4.6, CBC and CMP normal, vitamin D 26, TSH normal ROS: no oral ulcers, no sicca symptoms, no rashes, +mild hair thinning, no photosensitivity, no Raynaud's eye exam: 07/2024 sister: lupus aunt: RA. * ROS: G eneral / Constitutional: Patient denies f tristen, chills. P atient complains of?fatigue. M usculoskeletal: Patient complains of s ee HPI. S kin: Patient denies r maurilio. * Medical History: * Surgical History: o varian; [id number]; 6456-67-88Invdbbslqwt Lap; 2935-11-32qjttdeetakoniuu; 5620-39-22Zgpysvnhdpgol; 4822-51-47hhlcz fracture; 9997-28-39Lhtnkjnzknwd; 2021-12-16 * Hospitalization/Major Diagno stic Procedure: * Family History: M igrated Family History: lupus , Rheumatoid Arthritis . * Social History: M igrated Social History: M igrated Social History: :: 2 Children , Exercise :: Does not exercise regularly , Marital Status :: , Substance Use :: rare alcohol usage , Substance Use :: Tobacco :: Never. * Medications: T akingGabapentin 100 MG Capsule 1 capsule at bedtime Orally Once a day Olmesartan Medoxomil 20 MG Tablet 1 tablet Orally Once a day Magnesium 100 MG Tablet 2 tablets with meals Orally Twice a day CoQ-10 100 MG Capsule as directed Orally Vitamin D (Ergocalciferol) 1.25 MG (69009 UT) Capsule take 1 capsule weekly Oral cyanocobalamin (vitamin B-12) 1 ,000 mcg/mL solution inject 1 milliliter (1,000 mcg) by subcutaneous route once a month injection , Notes to Pharmacist: *Reorder from [facility] for eRx and Interaction Alerts*Hydroxychloroquine Sulfate 200 MG Tablet TAKE 2 TABLETS BY MOUTH EVERY DAY WITH FOOD 90 DULoxetine HCl 30 MG Capsule Delayed Release Particles TAKE 1 CAPSULE BY MOUTH EVERY DAY Orally Once a day Doxycycline Hyclate 100 MG Capsule TAKE 1 CAPSULE BY MOUTH TWICE A DAY FOR 10 DAYS Oral Taking Gabapentin 100 MG Capsule 1 capsule at bedtime Orally Once a day Taking Olmesartan Medoxomil 20 MG Tablet 1 tablet Orally Once a day Taking Magnesium 100 MG Tablet 2 tablets with meals Orally Twice a day Taking CoQ-10 100 MG Capsule as directed Orally Taking Vitamin D (Ergocalciferol) 1.25 MG (32564 UT) Capsule take 1 capsule weekly Oral Taking cyanocobalamin (vitamin B-12) 1 ,000 mcg/mL solution inject 1 milliliter (1,000 mcg) by subcutaneous route once a month injection , Notes to Pharmacist: *Reorder from [facility] for eRx and Interaction Alerts*Taking Hydroxychloroquine Sulfate 200 MG Tablet TAKE 2 TABLETS BY MOUTH EVERY DAY WITH FOOD 90 Taking DULoxetine HCl 30 MG Capsule Delayed Release Particles TAKE 1 CAPSULE BY MOUTH EVERY DAY Orally Once a day Taking Doxycycline Hyclate 100 MG Capsule TAKE 1 CAPSULE BY MOUTH TWICE A DAY FOR 10 DAYS Oral DiscontinuedGabapentin 300 MG Capsule 1 capsule Orally twice a day Fenofibrate 145 MG Tablet 1 tablet Orally Once a day DULoxetine HCl 60 MG Capsule Delayed Release Particles 1 capsule Orally Once a day Telmisartan 40 MG Tablet 1 tablet Orally Once a day Medication List reviewed and reconciled with the patientDiscontinued Gabapentin 300 MG Capsule 1 capsule Orally twice a day Discontinued Fenofibrate 145 MG Tablet 1 tablet Orally Once a day Discontinued DULoxetine HCl 60 MG Capsule Delayed Release Particles 1 capsule Orally Once a day Discontinued Telmisartan 40 MG Tablet 1 tablet Orally Once a day Medication List reviewed and reconciled with the patient * Allergies: D emerol: Allergy - Onset Date 12/12/2021ercocet: Allergy - Onset Date 12/12/2021redniSONE: Allergy - Onset Date 12/12/2021odeine: Allergy - Onset Date 12/12/2021Ketorolac: Allergy - Onset Date 12/12/2021ulfa Antibiotics: Allergy - Onset Date 12/12/2021Tramadol: Allergy - Onset Date 12/12/2021no[Allergies Verified] Objective: * Vitals: B P:140/88mm Hg, HR:89/min, Temp:97.7F, Oxygen sat %:96%, Wt:214.4lbs, Wt- k.23kg, Ht:67in, Ht-cm:170.18cm, BMI:33.58Index, Body Surface Area:2.14. * Examination: G eneral Examination: General appearance: a lert, well-nourished and in no acute distress. Head: n ormocephalic, atraumatic. Eyes: n ormal. Skin: n o rash. Lungs: r espiratory effort normal. N eurology: Speech: n ormal. P sychiatry: Affect / mood: a ppropriate. R heumatology: n o synovitis. Assessment: * Assessment: 1. C onnective tissue disease - M35.9 (Primary) 2 . O steoarthritis, unspecified osteoarthritis type, unspecified site - M19.90 3 . H igh risk medication use - Z79.899 mildly symptomatic, continue gabapentin, plaquenil and cymbalta, return in 6 months Plan: * Treatment: * Procedure Codes: * Follow Up: 6 Months * Billing Information: * Visit Code: 92930 Office Visit, Est Pt., Level 4. * Procedure Codes: * CH[employer] MEMBER Sign off status: Completed true * Provider: Riri WEINSTEIN MD Date: 09/24/2023 Generated for Jada loera/Og/Cass on: 0 10/25/2024 11:21 AM JOB [employer]BER History and Physical Notes * HPI (History of Present Illness) Category Sub-Category Detail Notes Category Not es General Follow up was on plaquenil 400mg/day, decreased to 200mg/day on her own, on Cymbalta 60mg/day and gabapentin 300mg QHS, fingers, toes and back ache, feesl tired, has had toruble sleeping, exercises 3 times per week On 12/18/2021, anti-SSA/SSB (-), NOEL 1:160 (homogeneous), cascade (-), HBV/HCV (-), CK normal, ESR and CRP normal, X-rays of hands: OA, X-rays of feet: OA, heel spurs, calcification at insertion sites of Achilles tendons On 11/27/2021, RF (-), anti-CCP (-), uric acid 4.6, CBC and CMP normal, vitamin D 26, TSH normal ROS: no oral ulcers, no sicca symptoms, no rashes, +mild hair thinning, no photosensitivity, no Raynaud's eye exam: 07/2024 sister: lupus aunt: RA Examination Category Sub-Category Detail Notes Category Not es Rheumatology no synovitis Neurology Speech: normal Psychiatry Affect / mood: appropriate General Examination General appearance: alert, w ell-nourished and in no acute distress Head: normocephalic, atrau matic Eyes: normal Lungs: respiratory effort n ormal Skin: no rash
--- OUTSIDE RECORDS SUMMARY | 2024-10-25 11:21 | XMS_ITS ---
Author Organization [facility] Address [address] [place] [address] Care Team Providers Care Obstetrics/Gynecology Nurse Name Role Phone Leana Pearson Primary Care Provider Unavail able Margie Wenistein Unavailable [phone] REASON FOR VISIT yd,f/u,cc Medications Medication SIG (Take, Route, Frequency, Duration) Notes Start Date End Date Status Olmesartan Medoxomil 20 MG take 1 tablet (20 mg) by oral route once daily Oral 1 Not-Taking Hydroxychloroquine Sulfate 200 MG TAKE 2 TABLETS BY MOUTH EVERY DAY WITH FOOD 90 for 90 Active Vitamin D (Ergocalciferol) 1.25 MG (85920 UT) take 1 capsule weekly Oral Active cyanocobalamin (vitamin B-12) 1 ,000 mcg/mL inject 1 milliliter (1,000 mcg) by subcutaneous route once a month injection *Reorder from [employer] for eRx and Interaction Alerts* Active DULoxetine HCl 30 MG TAKE 1 CAPSULE BY MOUTH EVERY DAY Orally Once a day for 30 days Active Telmisartan 40 MG 1 tablet Orally Once a day for 30 day(s) Active CoQ-10 100 MG as directed Orally Active DULoxetine HCl 60 MG 1 capsule Orally Once a day for 30 day(s) Active Magnesium 100 MG 2 tablets with meals Orally Twice a day for 30 day(s) Active Fenofibrate 145 MG 1 tablet Orally Once a day for 30 day(s) Active Gabapentin 300 MG 1 capsule Orally twice a day for 30 day(s) Active Encounters Encounter Location Date Provider Diagnosis [facility] [address] [place] [address] 07/17/2024 Margie Weinstein Plan Of Treatment Next Appt Details Provider Name:Margie Weinstein, 01/23 01:45:00 PM, [address] [facility], [address], [place], [address], Progress Notes * Julia DESOUZA ADOB:1965 (59 yo F)Acc No.[id number]:07/17/2024 Progress Notes Patient: Julia TAM Provider: Riri WEINSTEIN MD :1965 A ge:58 Y S ex:Female Date:07/17/2024 Address:[address] [place] [address] [id number] Pcp:FER Hill Subjective: * Chief Complaints: * 1 . Yd,f/u,cc. * Medical History: * Medications: T aking Gabapentin 300 MG Capsule 1 capsule Orally twice a day , Taking Fenofibrate 145 MG Tablet 1 tablet Orally Once a day , Taking DULoxetine HCl 60 MG Capsule Delayed Release Particles 1 capsule Orally Once a day , Taking Magnesium 100 MG Tablet 2 tablets with meals Orally Twice a day , Taking Telmisartan 40 MG Tablet 1 tablet Orally Once a day , Taking CoQ-10 100 MG Capsule as directed Orally , Taking Vitamin D (Ergocalciferol) 1.25 MG (48284 UT) Capsule take 1 capsule weekly Oral , Taking cyanocobalamin (vitamin B-12) 1 ,000 mcg/mL solution inject 1 milliliter (1,000 mcg) by subcutaneous route once a month injection , Notes to Pharmacist: *Reorder from [facility] for eRx and Interaction Alerts*, Taking Hydroxychloroquine Sulfate 200 MG Tablet TAKE 2 TABLETS BY MOUTH EVERY DAY WITH FOOD 90 , Taking DULoxetine HCl 30 MG Capsule Delayed Release Particles TAKE 1 CAPSULE BY MOUTH EVERY DAY Orally Once a day , Not-Taking Olmesartan Medoxomil 20 MG Tablet take 1 tablet (20 mg) by oral route once daily Oral 1 Objective: * Vitals: Assessment: Plan: * Treatment: * Billing Information: * Visit Code: * Procedure Codes: * Electronic signature of Margie Weinstein MD on 10/25/2024 at 11:21 AM FLIGHT HOSTESS Sign off status: Pending * Provider: Riri WEINSTEIN MD Date: 09/16/2023 Generated for Jada loera/Og/Cass on: 0 10/25/2024 11:21 AM FLIGHT HOSTESS
[2024-10-25] MEDS: IPRATROPIUM 0.5 MG/ALBUTEROL SULFATE 2.5 MG AMPUL.NEB 3 ML INHALATION ×3 (11:30→20:22)
[2024-10-25] MEDS: methylPREDNISolone SOD SUCC 125 MG VIAL IV PUSH (11:44)
[2024-10-25 11:57] LABS: Basophils Percent Auto 0.2 % (0.2-1.2); Hematocrit 37.7 % (37.0-47.0); Hemoglobin 13.2 g/dL (12.0-15.0); Immature Granulocyte Absolute 0.02 K/mm3 (0.00-0.031); Immature Granulocyte Percent A 0.4 % (0-0.5); Lymphocytes Absolute Auto 1.32 K/mm3 (0.9-3.2); Mean Platelet Volume 9.6 fl (7.4-10.4); Monocytes Absolute Auto 0.5 K/mm3 (0.1-0.6); Monocytes Percent Auto 9.1 % (2.6-8.5); Neutrophils Absolute Auto 3.3 K/mm3 (1.3-6.7); Neutrophils Percent Auto 64.3 % (45.5-73.1); Platelet Count Result 167 k/mm3 (150-375); Red Blood Count 3.77 M/mm3 (4.2-5.4); White Blood Count 5.1 K/mm3 (4.5-10.0)
[2024-10-25 12:12] LABS: Alanine Aminotransferase 38 U/L (6-35); Alkaline Phosphatase 49 U/L (38-126); Anion Gap 11 mmol/L (4-12); Aspartate Amino Transferase 47 U/L (14-36); Bilirubin,Total 0.7 mg/dL (0.2-1.3); Blood Urea Nitrogen 24 mg/dL (7-17); Calcium 8.1 mg/dL (8.4-10.2); Carbon Dioxide 28 mmol/L (22-30); Chloride 95 mmol/L (98-107); Estimated CRCL calculation 74 ml/min; Estimated Glomerular Filt Rate > 60; Glucose 112 mg/dL (65-110); Potassium 3.6 mmol/L (3.4-5.0); Sodium 134 mmol/L (137-145)
[2024-10-25 12:17] LABS: Atypical Lymphocytes Present; Platelet Estimate Adequate (Adequate); Schistocytes None Seen
--- NOTE | 2024-10-25 12:31 | PC.NURSE ---
NC increased to 3L per provider.
[2024-10-25 12:34] LABS: Influenza A QL RT-PCR Positive (Negative); Influenza B QL RT-PCR Negative (Negative); RSV RNA, RT-PCR Negative (Negative); SARS-CoV-2 RNA PCR Negative (Negative)
[2024-10-25] MEDS: ACETAMINOPHEN 500 MG TABLET 1000 MG PO (12:46)
--- NOTE | 2024-10-25 13:12 | PM.IMHP ---
H&P: HPI History of Present Illness Date/Time: 10/25/24 13:12 Chief Complaint: Shortness of Breath Narrative: 59 y/o M presents here with shortness of breath with PMH of fibromyalgia, hypertriglyceridemia, and vitamin-D deficiency. The patient presents here from her PCP for further evaluation of hypoxia and shortness of breath. 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 She began experiencing symptoms on 10/19 (approximately 6 days ago). She has been experiencing fever, chills, cold sweats, dizziness, shortness of breath, congestion, and a productive cough over the last 6 days. She was seen at her primary care office this morning for these symptoms. During this visit she was found to be hypoxic at 83% on room air. She was temporary placed on supplemental oxygen in office and offered an ambulance for transport to the ER for further evaluation, but patient declined. The patient was trialed on room air post arrival, O2 sat 88% on room air. Now on 2L NC at 93%. She reports improvement in lightheadedness/dizziness since placement of O2. She reports she has previously been asked about whether her O2 sats fluctuate but has never been started on home O2. No hx of asthma, smoking, or COPD. Initial VS at presentation: 99.7? F, HR 99, RR 20, 110/60, and 88-94% on room air, now on 2L NC. ED workup showed: No leukocytosis or anemia, sodium 134, creatinine 0.82 and GFR >60, calcium 8.1) albumin 4.0), and patient tested positive for influenza A. CXR showed no acute cardiopulmonary disease. Initial EKG showed sinus rhythm, rate 96, right axis deviation, borderline R-wave progression, minimal Q-waves, borderline T-wave abnormality. Review of Systems Review of Systems: All systems reviewed & are unremarkable except as noted in HPI and below [facility] Past Medical History Medical History (Updated 10/25/24 @ 13:29 by Rhoda Chapa APRN) Hypertension Vitamin D deficiency Hypertriglyceridemia Fibromyalgia Surgical History Surgical History H/O exploratory laparotomy Family History Family History Other Family history of coronary artery disease Social History Social History Smoking status: Never smoker Alcohol intake: never Substance use: never Substance use type: does not use Do You Feel Safe in your Home?: Yes Lack of Transportation: No Lack of Food: Never True Current Housing: I Have Housing Concerned About Future Housing: No Difficulty Paying Gas/Electric Bills: No Difficulty Paying for Meds: No Currently Unemployed: No Education: Don't Know Difficulty w/ Childcare or Family Care: No Spiritual care concerns: No Meds Home Medications and Allergies Home Medications ?Medication ?Instructions ?Recorded ?Confirmed ?Type gabapentin 100 mg capsule 100 mg PO HS 02/02/22 10/25/24 History hydroxychloroquine 200 mg tablet 200 mg PO BID 02/02/22 10/25/24 History telmisartan 40 mg tablet 40 mg PO DAILY 02/02/22 10/25/24 History cyanocobalamin (vitamin B-12) mcg 04/30/24 History 1,000 mcg/mL injection solution ergocalciferol (vitamin D2) 1,250 04/30/24 History mcg (50,000 unit) capsule fenofibrate nanocrystallized 145 mg PO 04/30/24 History mg tablet syringe with needle 3 mL 25 gauge 04/30/24 10/25/24 History x 1 (BD Luer-Rad Syringe) duloxetine 30 mg capsule,delayed 30 mg PO DAILY 10/25/24 10/25/24 History release Allergies Allergy/AdvReac Type Severity Reaction Status Date / Time cephalexin Allergy Unknown Unknown Verified 10/25/24 13:06 Cephalosporins Allergy Unknown Unknown Verified 10/25/24 13:06 codeine Allergy Unknown Unknown Verified 10/25/24 13:06 hydrocodone Allergy Unknown Unknown Verified 10/25/24 13:06 morphine Allergy Unknown Unknown Verified 10/25/24 13:06 Penicillins Allergy Unknown Unknown Verified 10/25/24 13:06 Sulfa (Sulfonamide Allergy Unknown Hives Verified 10/25/24 13:06 Antibiotics) sulfamethoxazole Allergy Unknown Unknown Verified 10/25/24 13:06 ketorolac (From Toradol) Allergy Vomiting Verified 10/25/24 13:06 tramadol Allergy Agitated Verified 10/25/24 13:06 Vital Signs Vital Signs - 24 hr 10/25/24 10:54 10/25/24 11:15 10/25/24 11:30 Temperature 99.7 F H Pulse Rate 99 92 Respiratory Rate 20 20 Blood Pressure 110/60 Pulse Oximetry 94 88 L Oxygen Delivery Room Air Room Air Oxygen Flow Rate 10/25/24 11:40 10/25/24 11:45 10/25/24 12:18 Temperature Pulse Rate 94 95 Respiratory Rate 20 28 H Blood Pressure Pulse Oximetry 94 91 Oxygen Delivery Oxygen Flow Rate 10/25/24 12:27 10/25/24 12:48 10/25/24 12:53 Temperature Pulse Rate 98 93 Respiratory Rate 22 H Blood Pressure 118/70 Pulse Oximetry 92 93 Oxygen Delivery Nasal Cannula Oxygen Flow Rate 2 Exam Const: General: comfortable and no acute distress Other: , female, nontoxic appearance HENMT: Face/Nose/Sinus: Normal nares present Mouth: Yes moist mucous membranes Other: Nasal cannula in place, tolerating well. Eyes: General: appearance normal, both eyes and all related structures Sclera: sclerae normal Pupils: Equal, round and reactive pupils present EOM: EOMs intact bilaterally Resp: Other: Mild tachypnea without increased work of breathing. Faint bibasilar crackles. No wheezing. Cardio: Rate: regular rate Rhythm: regular rhythm Other: S1-S2 present without murmur, rub, ectopy GI: Other: Abdomen soft, nondistended, nontender. Normoactive bowel sounds in all quadrants. Skin: General skin exam: normal color and no rashes or lesions noted Wounds: no wounds Neuro: Speech: normal speech Motor exam (neuro): 5/5 motor strength present throughout Sensory Exam: normal sensation Other: A&O x4 Extrem: General: normal to inspection Psych: Mental Status: mental status grossly normal Affect: normal affect Other: Good insight and judgment, pleasant H&P: Results Labs Labs: Short CBC 10/25/24 Range/Units 11:41 WBC 5.1 (4.5-10.0) K/mm3 Hgb 13.2 (12.0-15.0) g/dL Hct 37.7 (37.0-47.0) % Plt Count 167 (150-375) k/mm3 BMP 10/25/24 11:41 Sodium 134 L Potassium 3.6 Chloride 95 L Carbon Dioxide 28 BUN 24 H Creatinine 0.82 Glucose 112 H Calcium 8.1 L Liver Function 10/25/24 Range/Units 11:41 Total Bilirubin 0.7 (0.2-1.3) mg/dL AST 47 H (14-36) U/L ALT 38 H (6-35) U/L Alkaline Phosphatase 49 (38-126) U/L Albumin 4.0 (3.5-5.1) g/dL Assessment and Plan Assessment and plan (1) SIRS (systemic inflammatory response syndrome): Code(s): R65.10 - Systemic inflammatory response syndrome (SIRS) of non-infectious origin without acute organ dysfunction Status: Acute Assessment and Plan: - meets SIRS criteria: HR, RR. +hypoxia, -hypoTN. - lactic acid ordered - 30 mL/kg = 2.8, will start with 2L and assess toleration - patient tested positive for influenza a, no evidence of pneumonia on imaging however has bibasilar crackles. follow WBC. consider starting CAP treatment for presumptive pna if no improvement with breathing treatments or if WBC increases. - blood cultures drawn on 10/25 - UA ordered - CXR: No acute cardiopulmonary disease. (2) Acute hypoxic respiratory failure: Code(s): J96.01 - Acute respiratory failure with hypoxia Status: Acute Assessment and Plan: - CXR: No acute cardiopulmonary disease - EKG, initial: Sinus rhythm, rate 96, right axis deviation, borderline R-wave progression (anterior leads), minimal Q-waves (inferior leads), borderline T-wave abnormality (anterior leads), borderline EKG. - viral PCR positive for influenza a on 10/25, previously tested positive on XX - hemoglobin 13.2, CO2 28 - suspect new oxygen requirement secondary to influenza, cannot exclude pneumonia. Low suspicion for PE, no known risk factors. - continue supplemental O2 to maintain O2 saturation greater than 92%, weakness tolerated (3) Influenza A: Code(s): J10.1 - Influenza due to other identified influenza virus with other respiratory manifestations Status: Acute Assessment and Plan: - tested positive for influenza A on 10/25, symptom onset on 10/19 - CXR showed no evidence of pneumonia, agree with read - supportive care: Tylenol p.r.n. Mucinex xander DuoNeb p.r.n. Tessalon Perles p.r.n. Lozenge p.r.n. - monitor WBC/CBC - currently requiring increased supplemental O2 (4) Hypertension: Qualifiers: Hypertension type: primary hypertension Qualified Code(s): I10 - Essential (primary) hypertension Code(s): I10 - Essential (primary) hypertension Status: Chronic Assessment and Plan: - chronic, currently 118/70 - continue home medications: Telmisartan - monitor Plan Mild hypocalcemia, 8.1, in the setting of a normal albumin level. Will replete p.o., calcium 500 t.i.d. with meals x3 doses ordered. Trend. Diet: Heart healthy GI Prophylaxis: Not currently indicated DVT Prophylaxis: Lovenox SQ Lines: Peripheral Code Status: Full code Quality VTE Prophylaxis VTE prophylaxis: pharmacologic ordered Hospitalist MIPS Advance Care Plan I have confirmed that the patient's Advanced Care Plan is present, code status is documented, or surrogate decision maker is listed in patient medical record.: Yes Medication Reconciliation I have utilized all available resources to obtain, update and review the patients current medications (includes all prescriptions, OTC, herbals, cannabis, and nutritional supplements).: Yes
[2024-10-25] MEDS: LACTATED RINGERS 1,000 ML 999 ML IV CONT ×2 (13:58→17:19)
[2024-10-25] MEDS: ENOXAPARIN 40 MG/0.4 ML SYRINGE SUB-Q (14:10)
[2024-10-25 14:34] LABS: Lactic Acid Reflex 0.7 mmol/L (0.7-2.0)
[2024-10-25] MEDS: OSELTAMIVIR PHOSPHATE 75 MG CAPSULE PO (16:19)
[2024-10-25] MEDS: guaiFENesin 12 HR 600 MG TABCR PO ×2 (16:19→21:19)
[2024-10-25] MEDS: BENZONATATE 100 MG CAPSULE PO (16:19)
[2024-10-25] MEDS: CALCIUM CARBONATE (OSCAL) 500 MG TABLET PO (16:19)
--- NOTE | 2024-10-25 17:04 | ADMGEN ---
This patient, Julia Desouza, was admitted to [facility] Surg Room 316-01. Patient/family oriented to hospital policies and general routines including ID bracelet, bed and alarms, visiting hours, pain management, procedures, bathroom and other care routines, personal items, smoking policy, room service/diet, and visiting hours. Information on how to activate the Rapid Response Team has been discussed. Patient/Family are encouraged to report perceived risks to care and to ask questions if they do not understand what they are told or what they should do.
[2024-10-25] MEDS: HYDROXYCHLOROQUINE SULFATE 200 MG TABLET PO (19:00)
[2024-10-25] MEDS: GABAPENTIN 100 MG CAPSULE PO (21:19)
[2024-10-25 21:33] LABS: Add Urine Microscopic? YES; Appearance Urine Cloudy (Clear); Bacteria Urine None Seen /hpf; Bilirubin Urine Negative (Negative); Blood Urine Negative (Negative); Color Urine Yellow (Yellow); Glucose Urine UA Negative (Negative); Ketones Urine Negative (Negative); Leukocyte Esterase Ur Negative LEU/UL (Negative); Nitrate Urine Negative (Negative); Protein Urine Trace mg/dL (Negative); Specific Grav Ur 1.012 (1.001-1.035); Squamous Epithelial Cell Urine Few /hpf (Few); Urobilinogen Urine 0.2 mg/dL (<2.0); WBC Urine 0-5 /hpf (0-3); pH Urine 5.5 (5.0-9.0)
[2024-10-26] VITALS (9 sets, daily range): BP systolic 92–106; BP diastolic 60–67; PULSE 64–83; RESP 16–18; TEMP 35.8–36.4; O2SAT 92–99
[2024-10-26 07:20] LABS: Basophils Percent Auto 0.2 % (0.2-1.2); Hematocrit 35.6 % (37.0-47.0); Hemoglobin 12.5 g/dL (12.0-15.0); Immature Granulocyte Absolute 0.01 K/mm3 (0.00-0.031); Immature Granulocyte Percent A 0.2 % (0-0.5); Lymphocytes Absolute Auto 1.36 K/mm3 (0.9-3.2); Mean Corpuscular HGB Conc 35.1 g/dl (32-36); Mean Corpuscular Volume 99.7 fl (80-100); Mean Platelet Volume 9.5 fl (7.4-10.4); Monocytes Absolute Auto 0.6 K/mm3 (0.1-0.6); Neutrophils Absolute Auto 2.6 K/mm3 (1.3-6.7); Neutrophils Percent Auto 56.6 % (45.5-73.1); Platelet Count Result 155 k/mm3 (150-375); Red Blood Count 3.57 M/mm3 (4.2-5.4); Red Cell Distribution Width 11.8 % (11.5-14.5); White Blood Count 4.5 K/mm3 (4.5-10.0)
[2024-10-26 07:37] LABS: Alanine Aminotransferase 30 U/L (6-35); Albumin Level 3.7 g/dL (3.5-5.1); Alkaline Phosphatase 44 U/L (38-126); Anion Gap 9 mmol/L (4-12); Aspartate Amino Transferase 33 U/L (14-36); Bilirubin,Total 0.5 mg/dL (0.2-1.3); Blood Urea Nitrogen 22 mg/dL (7-17); Calcium 8.5 mg/dL (8.4-10.2); Carbon Dioxide 30 mmol/L (22-30); Chloride 99 mmol/L (98-107); Estimated CRCL calculation 105 ml/min; Estimated Glomerular Filt Rate > 60; Glucose 135 mg/dL (65-110); Potassium 4.1 mmol/L (3.4-5.0); Sodium 138 mmol/L (137-145)
[2024-10-26] MEDS: IPRATROPIUM 0.5 MG/ALBUTEROL SULFATE 2.5 MG AMPUL.NEB 3 ML INHALATION ×2 (08:20→14:26)
[2024-10-26 08:23] LABS: Atypical Lymphocytes Present; Platelet Estimate Adequate (Adequate); Schistocytes None Seen
[2024-10-26] MEDS: guaiFENesin 12 HR 600 MG TABCR PO ×2 (08:44→20:55)
[2024-10-26] MEDS: TELMISARTAN 40 MG TABLET PO (08:44)
[2024-10-26] MEDS: HYDROXYCHLOROQUINE SULFATE 200 MG TABLET PO ×2 (08:44→16:53)
[2024-10-26] MEDS: DULoxetine HCL 30 MG CAPSULE.DR PO (08:45)
[2024-10-26] MEDS: CALCIUM CARBONATE (OSCAL) 500 MG TABLET PO ×2 (08:45→12:09)
[2024-10-26] MEDS: OSELTAMIVIR PHOSPHATE 75 MG CAPSULE PO ×2 (12:09→20:55)
--- NOTE | 2024-10-26 13:52 | PM.IMPN ---
Progress Note: A&P Assessment and Plan (1) SIRS (systemic inflammatory response syndrome): Code(s): R65.10 - Systemic inflammatory response syndrome (SIRS) of non-infectious origin without acute organ dysfunction Status: Acute Assessment and Plan: - meets SIRS criteria: HR, RR. +hypoxia, -hypoTN. - lactic acid ordered - 30 mL/kg = 2.8, will start with 2L and assess toleration - patient tested positive for influenza a, no evidence of pneumonia on imaging however has bibasilar crackles. follow WBC. consider starting CAP treatment for presumptive pna if no improvement with breathing treatments or if WBC increases. - blood cultures drawn on 10/25 - UA ordered - CXR: No acute cardiopulmonary disease. (2) Acute hypoxic respiratory failure: Code(s): J96.01 - Acute respiratory failure with hypoxia Status: Acute Assessment and Plan: - CXR: No acute cardiopulmonary disease - EKG, initial: Sinus rhythm, rate 96, right axis deviation, borderline R-wave progression (anterior leads), minimal Q-waves (inferior leads), borderline T-wave abnormality (anterior leads), borderline EKG. - viral PCR positive for influenza a on 10/25, previously tested positive on XX - hemoglobin 13.2, CO2 28 - suspect new oxygen requirement secondary to influenza, cannot exclude pneumonia. Low suspicion for PE, no known risk factors. - continue supplemental O2 to maintain O2 saturation greater than 92%, weakness tolerated (3) Influenza A: Code(s): J10.1 - Influenza due to other identified influenza virus with other respiratory manifestations Status: Acute Assessment and Plan: - tested positive for influenza A on 10/25, symptom onset on 10/19 - CXR showed no evidence of pneumonia, agree with read - supportive care: Tylenol p.r.n. Mucinex xander DuoNeb p.r.n. Tessalon Perles p.r.n. Lozenge p.r.n. - monitor WBC/CBC - currently requiring increased supplemental O2 (4) Hypertension: Qualifiers: Hypertension type: primary hypertension Qualified Code(s): I10 - Essential (primary) hypertension Code(s): I10 - Essential (primary) hypertension Status: Chronic Assessment and Plan: - chronic, currently 118/70 - continue home medications: Telmisartan - monitor Plan Mild hypocalcemia, 8.1, in the setting of a normal albumin level. Will replete p.o., calcium 500 t.i.d. with meals x3 doses ordered. Trend. Diet: Heart healthy GI Prophylaxis: Not currently indicated DVT Prophylaxis: Lovenox SQ Lines: Peripheral Code Status: Full code Subjective Date/time seen: 10/26/24 13:52 Interval history: Pt has PMHx MS. Started on Tamiflu. Will wean her O2 Review of Systems Review of Systems: All systems reviewed & are unremarkable except as noted in HPI and below Exam Narrative: faint bibasilar crackles. mild tachypnea without increased WOB. Const: General: comfortable and no acute distress Other: , female, nontoxic appearance HENMT: Face/Nose/Sinus: Normal nares present Mouth: Yes moist mucous membranes Other: Nasal cannula in place, tolerating well. Eyes: General: appearance normal, both eyes and all related structures Sclera: sclerae normal Pupils: Equal, round and reactive pupils present EOM: EOMs intact bilaterally Resp: Other: Mild tachypnea without increased work of breathing. Faint bibasilar crackles. No wheezing. Cardio: Rate: regular rate Rhythm: regular rhythm Other: S1-S2 present without murmur, rub, ectopy GI: Other: Abdomen soft, nondistended, nontender. Normoactive bowel sounds in all quadrants. Skin: General skin exam: normal color and no rashes or lesions noted Wounds: no wounds Neuro: Cranial nerves: Yes Equal, round and reactive pupils present Speech: normal speech Motor exam (neuro): 5/5 motor strength present throughout Sensory Exam: normal sensation Other: A&O x4 Extrem: General: normal to inspection Psych: Mental Status: mental status grossly normal Affect: normal affect Other: Good insight and judgment, pleasant Objective Data Vital Signs Vital Signs: Vital Signs - 24 hr 10/25/24 14:07 10/25/24 14:07 10/25/24 14:17 Temperature Pulse Rate 88 97 Respiratory Rate 18 15 Blood Pressure 115/66 Pulse Oximetry 93 97 Oxygen Delivery Nasal Cannula Oxygen Flow Rate 3 10/25/24 14:21 10/25/24 15:00 10/25/24 18:46 Temperature 98.2 F Pulse Rate 86 82 Respiratory Rate 18 20 Blood Pressure 113/61 Pulse Oximetry 93 93 Oxygen Delivery Nasal Cannula Oxygen Flow Rate 3 10/25/24 20:22 10/25/24 20:27 10/25/24 20:31 Temperature Pulse Rate 62 69 Respiratory Rate 18 18 Blood Pressure Pulse Oximetry 94 Oxygen Delivery Nasal Cannula Oxygen Flow Rate 3 10/25/24 21:07 10/25/24 21:20 10/26/24 05:43 Temperature 98.1 F 97.5 F L Pulse Rate 70 70 76 Respiratory Rate 16 16 16 Blood Pressure 103/64 92/67 L Pulse Oximetry 92 92 96 Oxygen Delivery Nasal Cannula Oxygen Flow Rate 3 10/26/24 08:20 10/26/24 08:23 10/26/24 08:31 Temperature Pulse Rate 64 64 75 Respiratory Rate 18 18 18 Blood Pressure Pulse Oximetry 93 Oxygen Delivery Nasal Cannula Oxygen Flow Rate 3 Intake/Output Intake/Output: Intake & Output 10/23/24 10/24/24 10/25/24 10/26/24 23:59 23:59 23:59 23:59 Intake Total 610 840 Balance 610 840 Meds/Results Medications: Active Medications Generic Name Dose Route Start Last Admin Trade Name Freq PRN Reason Stop Dose Admin Acetaminophen 650 mg 10/25/24 13:26 Acetaminophen 325 Mg Tablet PO Q6H PRN Mild Pain (1-3) or Fever Albuterol/Ipratropium 3 ml 10/25/24 14:00 10/26/24 08:20 Ipratropium 0.5 Mg/Albuterol Sulfate 2.5 Mg Ampul.Neb 3 Ml INHALATION 3 ml Q6HRT XANDER Administration Benzocaine 1 lozenge 10/25/24 13:26 Benzocaine/Menthol (*Bkc) 18 Ea Lozenge PO PRN PRN Sore Throat Benzonatate 100 mg 10/25/24 13:26 10/25/24 16:19 Benzonatate 100 Mg Capsule PO 100 mg TID PRN Administration Cough Duloxetine HCl 30 mg 10/26/24 09:00 10/26/24 08:45 Duloxetine Hcl 30 Mg Capsule.Dr PO 30 mg DAILY XANDER Administration Enoxaparin Sodium 40 mg 10/25/24 13:35 10/26/24 08:46 Enoxaparin 40 Mg/0.4 Ml Syringe SUB-Q Not Given DAILY XANDER Gabapentin 100 mg 10/25/24 21:00 10/25/24 21:19 Gabapentin 100 Mg Capsule PO 100 mg HS XANDER Administration Guaifenesin 600 mg 10/25/24 13:35 10/26/24 08:44 Guaifenesin 12 Hr 600 Mg Tabcr PO 600 mg Q12HR XANDER Administration Hydroxychloroquine Sulfate 200 mg 10/25/24 18:00 10/26/24 08:44 Hydroxychloroquine Sulfate 200 Mg Tablet PO 200 mg BID XANDER Administration Oseltamivir Phosphate 75 mg 10/26/24 10:05 10/26/24 12:09 Oseltamivir Phosphate 75 Mg Capsule PO 10/31/24 10:04 75 mg Q12HR XANDER Administration Telmisartan 40 mg 10/26/24 09:00 10/26/24 08:44 Telmisartan 40 Mg Tablet PO 40 mg DAILY XANDER Administration Radiology Results: ITS Impressions Chest X-Ray 10/25/24 11:24 Impression: 1: No acute cardiopulmonary disease. Labs Labs: Laboratory Results - last 24 hr 10/25/24 10/25/24 10/26/24 14:12 21:20 07:05 WBC 4.5 RBC 3.57 L Hgb 12.5 Hct 35.6 L MCV 99.7 MCH 35.0 H MCHC 35.1 RDW 11.8 Plt Count 155 MPV 9.5 Immature Gran % (Auto) 0.2 Neut % (Auto) 56.6 Lymph % (Auto) 30.0 [place] % (Auto) 13.0 H Eos % (Auto) 0.0 Baso % (Auto) 0.2 Lymph # (Auto) 1.36 [place] # (Auto) 0.6 Eos # (Auto) 0.0 Baso # (Auto) 0.0 Abs Immat Gran (auto) 0.01 Absolute Neuts (auto) 2.6 Absolute Nucleated RBC 0.000 Band Neutrophils % Not Reportable Nucleated RBC % 0.0 Atypical Lymphocytes Present Platelet Estimate Adequate Schistocytes None seen Sodium 138 Potassium 4.1 Chloride 99 Carbon Dioxide 30 Anion Gap 9 BUN 22 H Creatinine 0.56 L Estim Creat Clear Calc 105 Estimated GFR > 60 Glucose 135 H Lactic Acid 0.7 Calcium 8.5 Total Bilirubin 0.5 AST 33 ALT 30 Alkaline Phosphatase 44 Total Protein 7.0 Albumin 3.7 Urine Color Yellow Urine Appearance Cloudy H Urine pH 5.5 Ur Specific [place] 1.012 Urine Protein Trace Urine Glucose (UA) Negative Urine Ketones Negative Ur Blood (Man) Negative Urine Nitrate Negative Urine Bilirubin Negative Urine Urobilinogen 0.2 Leukocyte Esterase Rfl Negative Urine RBC 3-5 H Urine WBC 0-5 Ur Squamous Epith Cells Few Urine Bacteria None seen Urine Casts 3-5 Quality VTE Prophylaxis VTE prophylaxis: pharmacologic ordered Hospitalist MIPS Advance Care Plan I have confirmed that the patient's Advanced Care Plan is present, code status is documented, or surrogate decision maker is listed in patient medical record.: Yes Medication Reconciliation I have utilized all available resources to obtain, update and review the patients current medications (includes all prescriptions, OTC, herbals, cannabis, and nutritional supplements).: Yes
[2024-10-26] MEDS: GABAPENTIN 100 MG CAPSULE PO (20:55)
--- NOTE | 2024-10-26 23:00 | PCRCNOTE ---
Window of time for administration has passed. See next scheduled administration.
[2024-10-26] MEDS: ACETAMINOPHEN 325 MG TABLET 650 MG PO (23:40)
[2024-10-27 06:00] VITALS: BP 99/55; PULSE 67; RESP 18; TEMP 36.5; O2SAT 94
[2024-10-27 07:30] VITALS: PULSE 70; RESP 18; O2SAT 91
[2024-10-27] MEDS: IPRATROPIUM 0.5 MG/ALBUTEROL SULFATE 2.5 MG AMPUL.NEB 3 ML INHALATION ×2 (07:30→13:10)
[2024-10-27 07:40] VITALS: PULSE 74; RESP 18
[2024-10-27] MEDS: guaiFENesin 12 HR 600 MG TABCR PO (08:40)
[2024-10-27] MEDS: DULoxetine HCL 30 MG CAPSULE.DR PO (08:40)
[2024-10-27] MEDS: TELMISARTAN 40 MG TABLET PO (08:40)
[2024-10-27] MEDS: OSELTAMIVIR PHOSPHATE 75 MG CAPSULE PO (08:40)
[2024-10-27] MEDS: HYDROXYCHLOROQUINE SULFATE 200 MG TABLET PO (08:41)
[2024-10-27 10:11] VITALS: BP 108/58; PULSE 78; RESP 18; TEMP 36.4; O2SAT 98
[2024-10-27 13:10] VITALS: PULSE 74; RESP 18
[2024-10-27 13:20] VITALS: PULSE 73; RESP 18
--- NOTE | 2024-10-27 14:44 | PM.DS ---
DS: Admitting Diagnosis Discharge Date 10/27/2024 Admitting Diagnosis Shortness of Breath DS: Discharge Diagnosis Discharge Diagnosis (1) SIRS (systemic inflammatory response syndrome): Code(s): R65.10 - Systemic inflammatory response syndrome (SIRS) of non-infectious origin without acute organ dysfunction Status: Acute Assessment and Plan: Resolved - meets SIRS criteria: HR, RR. +hypoxia, -hypoTN. - lactic acid ordered - 30 mL/kg = 2.8, will start with 2L and assess toleration - patient tested positive for influenza a, no evidence of pneumonia on imaging however has bibasilar crackles. follow WBC. consider starting CAP treatment for presumptive pna if no improvement with breathing treatments or if WBC increases. - blood cultures drawn on 10/25 - UA ordered - CXR: No acute cardiopulmonary disease. (2) Acute hypoxic respiratory failure: Code(s): J96.01 - Acute respiratory failure with hypoxia Status: Acute Assessment and Plan: Resolved - CXR: No acute cardiopulmonary disease - EKG, initial: Sinus rhythm, rate 96, right axis deviation, borderline R-wave progression (anterior leads), minimal Q-waves (inferior leads), borderline T-wave abnormality (anterior leads), borderline EKG. - viral PCR positive for influenza a on 10/25, previously tested positive on XX - hemoglobin 13.2, CO2 28 - suspect new oxygen requirement secondary to influenza, cannot exclude pneumonia. Low suspicion for PE, no known risk factors. - continue supplemental O2 to maintain O2 saturation greater than 92%, weakness tolerated (3) Influenza A: Code(s): J10.1 - Influenza due to other identified influenza virus with other respiratory manifestations Status: Acute Assessment and Plan: Resolved - tested positive for influenza A on 10/25, symptom onset on 10/19 - CXR showed no evidence of pneumonia, agree with read - supportive care: Tylenol p.r.n. Mucinex xander DuoNeb p.r.n. Tessalon Perles p.r.n. Lozenge p.r.n. - monitor WBC/CBC - currently requiring increased supplemental O2 (4) Hypertension: Qualifiers: Hypertension type: primary hypertension Qualified Code(s): I10 - Essential (primary) hypertension Code(s): I10 - Essential (primary) hypertension Status: Chronic Assessment and Plan: - chronic, currently 118/70 - continue home medications: Telmisartan - monitor DS: Summary Hospital Course Hospital Course: 59 y/o M presents here with shortness of breath with PMH of fibromyalgia, hypertriglyceridemia, and vitamin-D deficiency. The patient presents here from her PCP for further evaluation of hypoxia and shortness of breath. 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 She began experiencing symptoms on 10/19 (approximately 6 days ago). She has been experiencing fever, chills, cold sweats, dizziness, shortness of breath, congestion, and a productive cough over the last 6 days. She was seen at her primary care office this morning for these symptoms. During this visit she was found to be hypoxic at 83% on room air. She was temporary placed on supplemental oxygen in office and offered an ambulance for transport to the ER for further evaluation, but patient declined. The patient was trialed on room air post arrival, O2 sat 88% on room air. Now on 2L NC at 93%. She reports improvement in lightheadedness/dizziness since placement of O2. She reports she has previously been asked about whether her O2 sats fluctuate but has never been started on home O2. No hx of asthma, smoking, or COPD. Initial VS at presentation: 99.7? F, HR 99, RR 20, 110/60, and 88-94% on room air, now on 2L NC. ED workup showed: No leukocytosis or anemia, sodium 134, creatinine 0.82 and GFR >60, calcium 8.1) albumin 4.0), and patient tested positive for influenza A. CXR showed no acute cardiopulmonary disease. Initial EKG showed sinus rhythm, rate 96, right axis deviation, borderline R-wave progression, minimal Q-waves, borderline T-wave abnormality. I assumed care on 10/26-10/27:Patient was initially treated symptomatically for Influenza A. Patient was requiring 2L NC on 10/26. Started Tamiflu even though patient was positive for Influenza 10 days before. Patent significantly improved and today she is saturating well on RA. Status at Discharge Cognitive/behavioral status at discharge: Stable Time Spent with Patient Time attestation: Total time spent providing and/or coordinating discharge services: 45 minutes Exam Narrative: faint bibasilar crackles. mild tachypnea without increased WOB. Const: General: comfortable and no acute distress Other: , female, nontoxic appearance HENMT: Face/Nose/Sinus: Normal nares present Mouth: Yes moist mucous membranes Other: Nasal cannula in place, tolerating well. Eyes: General: appearance normal, both eyes and all related structures Sclera: sclerae normal Pupils: Equal, round and reactive pupils present EOM: EOMs intact bilaterally Resp: Other: Mild tachypnea without increased work of breathing. Faint bibasilar crackles. No wheezing. Cardio: Rate: regular rate Rhythm: regular rhythm Other: S1-S2 present without murmur, rub, ectopy GI: Other: Abdomen soft, nondistended, nontender. Normoactive bowel sounds in all quadrants. Skin: General skin exam: normal color and no rashes or lesions noted Wounds: no wounds Neuro: Cranial nerves: Yes Equal, round and reactive pupils present Speech: normal speech Motor exam (neuro): 5/5 motor strength present throughout Sensory Exam: normal sensation Other: A&O x4 Extrem: General: normal to inspection Psych: Mental Status: mental status grossly normal Affect: normal affect Other: Good insight and judgment, pleasant DS: Data Data Completed and Pending Labs on day of discharge: Preliminary micro results at discharge 10/25/24 14:12 Blood Culture - Preliminary Blood 10/25/24 14:14 Blood Culture - Preliminary Blood Discharge Plan Discharge Attending physician on discharge: Andrea Monet Discharging Clinician: Andrea Monet Anticipated Discharge Date/Time: 10/27/24 14:42 Patient Disposition: Home, Self-Care Activity: as tolerated Diet: heart healthy Discharge Instructions: Please complete Oseltamivir one tab two times a day until 10/31 Check blood pressure 1 to 2 times a day. Record and bring into your doctor for review. Call your doctor if your blood pressure is greater than 180/110 or less than 90/45. Walk with cane or other assist device. Take precautions to avoid falls. Rise slowly from a lying or sitting position. Pause before standing or walking. Contact your doctor or call 911 and come to the Emergency Room if you have any type of trauma, lightheadedness with standing or other worrisome symptoms. Avoid NSAIDs (ibuprofen, naproxen, Aleve). Tylenol is safe to take. Follow-up with your primary care provider in 1-2 weeks. Please call for appointment. Thank you for using [facility] for your health care needs. Patient Instructions: Antibiotic Form Patient Language: Hebrew Stand Alone Forms: General Discharge Information Follow-up/Referrals: YOAN,MORELIA FONTANEZ [Primary Care Provider] - Discharge Medications: New benzonatate 100 mg Capsule 100 mg PO TID PRN (Reason: Cough) Qty: 30 0RF oseltamivir [Tamiflu] 75 mg Capsule 75 mg PO Q12HR Qty: 10 0RF Rx Instructions: Please complete Oseltamivir 75mg PO BID until 10/31/2024 Continued cyanocobalamin (vitamin B-12) 1,000 mcg/mL solution 1,000 mcg IM MONTHLY (DME) BD Luer-Rad Syringe 3 mL 25 gauge x 1 syringe MISCELLANEOUS ergocalciferol (vitamin D2) 1,250 mcg (50,000 unit) capsule 1,250 mcg PO WEEKLY fenofibrate nanocrystallized 145 mg tablet 145 mg PO DAILY telmisartan 40 mg Tablet 40 mg PO DAILY gabapentin 100 mg Capsule 100 mg PO HS hydroxychloroquine 200 mg Tablet 200 mg PO BID duloxetine 30 mg capsule,delayed release(DR/EC) 30 mg PO DAILY Date of admission: 10/25/24 16:37 Primary Care Provider: YOANESTEE Admitting Provider: Iona Mederos Attending physician on admission: Iona Mederos Condition: Stable
== END 2024-10-27 15:30 | disposition home or self-care (01) | DRG 193 ==
LOC: ANHED 12:35 → ANH3MEDSUR 13:43
PROVIDERS: Emergency Medicine; Student in an Organized Health Care Education/Training Program; Admitting Provider Internal Medicine; Emergency Provider Physician Assistant; PCP Nurse Practitioner Family; Visit Provider General Practice
DX: J10.1 Influenza due to other identified influenza virus with other respiratory manifestations (principal); J96.01 Acute respiratory failure with hypoxia; R65.10 Systemic inflammatory response syndrome (SIRS) of non-infectious origin without acute organ dysfunction; E78.1 Pure hyperglyceridemia; M79.7 Fibromyalgia; I10 Essential (primary) hypertension; E83.51 Hypocalcemia; Z20.822 Contact with and (suspected) exposure to COVID-19
CPT/HCPCS: 36415; 71046; 80053; 81001; 83605; 85025; 87040; 87637; 93005; 94640; 96361; 96374; 99285; A9270; G0378; J1650; J2919; J7120